=== PATIENT | male | born 1930 | race African-American/Black ===

== ENCOUNTER → 2016-06-16 | Outpatient (CLI) | payer MEDICARE, OTHER ==
[2016-06-16 11:29] LABS: ABSOLUTE BASOPHILS # (AUTO) 0.1 10^3/uL (0.0-0.2); ABSOLUTE EOSINOPHILS # (AUTO) 0.1 10^3/uL (0.0-0.6); ABSOLUTE LYMPHOCYTES (AUTO) 1.3 10^3/uL (0.5-4.7); ABSOLUTE MONOCYTES (AUTO) 0.4 10^3/uL (0.1-1.4); ABSOLUTE NEUT (AUTO) 2.4 10^3/uL (1.7-8.2); BASOPHILS % (AUTO) 1.2 % (0-2); EOSINOPHILS % (AUTO) 1.8 % (0-6); HEMATOCRIT 41.2 % (37.9-51.0); HEMOGLOBIN 13.1 g/dL (13.5-17.0); HGB HCT DIFFERENCE -1.9; LYMPHOCYTES % (AUTO) 30.3 % (13-45); MEAN CORPUSCULAR HEMOGLOBIN 27.8 pg (27.0-33.4); MEAN CORPUSCULAR HGB CONC 31.9 g/dL (32.0-36.0); MEAN CORPUSCULAR VOLUME 87 fl (80-97); MONOCYTES % (AUTO) 10.4 % (3-13); RED BLOOD COUNT 4.72 10^6/uL (4.35-5.55); RED CELL DISTRIBUTION WIDTH 15.7 % (11.5-14.0); SEGMENTED NEUTROPHILS % (AUTO) 56.3 % (42-78); WHITE BLOOD COUNT 4.2 10^3/uL (4.0-10.5)
[2016-06-16 11:38] LABS: ALANINE AMINOTRANSFERASE 38 U/L (21-72); ALBUMIN 4.3 g/dL (3.5-5.0); ALKALINE PHOSPHATASE 141 U/L (38-126); ANION GAP 14 (5-19); ASPARTATE AMINO TRANSFERASE 35 U/L (17-59); BLOOD UREA NITROGEN 18 mg/dL (7-20); CALCIUM 9.4 mg/dL (8.4-10.2); CARBON DIOXIDE 29 mmol/L (22-30); CHLORIDE 102 mmol/L (98-107); CHOLESTEROL 114.46 mg/dL (0-200); CREATININE RESULT 1.19 mg/dL (0.52-1.25); Direct HDL 30 mg/dL (>40); GLUCOSE 107 mg/dL (75-110); POTASSIUM 4.3 mmol/L (3.6-5.0); SODIUM 145.1 mmol/L (137-145); TOTAL PROTEIN 8.5 g/dL (6.3-8.2); TRIGLYCERIDES 59 mg/dL (<150)
[2016-06-16 11:50] LABS: DIRECT LDL 55 mg/dL (<100)
== END ==
LOC: OD 09:59
PROVIDERS: ATTEND Internal Medicine Geriatric Medicine
DX: E78.5 Hyperlipidemia, unspecified (principal); I10 Essential (primary) hypertension; E03.9 Hypothyroidism, unspecified
CPT/HCPCS: 36415; 80053; 80061; 84436; 84443; 85025

== ENCOUNTER 2016-09-04 19:23 | Emergency (ER) | payer MEDICARE, OTHER ==
[2016-09-04] MEDS ORDERED: OXYCODONE-ACETAMINOPHEN 5-325 MG TABLET PO ONE (23:39)
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
[2016-09-05 02:24] VITALS: BP 116/61
== END 2016-09-05 02:22 | disposition home or self-care (01) ==
LOC: ER 19:23
DX: R07.81 Pleurodynia (principal); V49.9XXA Car occupant (driver) (passenger) injured in unspecified traffic accident, initial encounter; I10 Essential (primary) hypertension; I48.91 Unspecified atrial fibrillation; Z79.01 Long term (current) use of anticoagulants
CPT/HCPCS: 99283; 71101; A9270

== ENCOUNTER 2016-09-09 18:27 | Emergency (ER) | payer MEDICARE, OTHER ==
--- NOTE | 2016-09-09 19:00 | ER Document Report ---
ED General - General Chief Complaint: Leg Pain Stated Complaint: LEG PAIN Time seen by provider: 18:45 Mode of Arrival: Medic Information source: Patient TRAVEL OUTSIDE OF THE [place] IN LAST 30 DAYS: No - HPI Notes: Patient is a 86-year-old male presents emergency department with report that he was sitting outside in a chair and stepped forward caught his leg on a part of the chair and then fell over on his left hip. He's been unable to get up on his own since that time. EMS came to pick patient up. Patient lives at home alone with his . He normally ambulates with a walker due to a history of a previous CVA with mild left-sided weakness. He denies any change in the mild chronic left-sided weakness or minimal numbness noted to the left lower extremity. Patient denies any head injury, neck pain, back pain, chest pain. - Related Data Allergies/Adverse Reactions: No Known Allergies Allergy (Verified 11/02/15 10:56) Past Medical History - General Information source: Patient - Social History Smoking Status: Never Smoker Frequency of alcohol use: None Drug Abuse: None Lives with: Spouse/Significant other Family History: None - Past Medical History Cardiac Medical History: Reports: Hx Atrial Fibrillation, Hx Hypercholesterolemia, Hx Hypertension - amlodipine benazepril Denies: Hx Congestive Heart Failure, Hx Heart Attack Pulmonary Medical History: Denies: Hx Asthma, Hx Tuberculosis Neurological Medical History: Denies: Hx Cerebrovascular Accident, Hx Seizures Renal/ Medical History: Reports: Hx Benign Prostatic Hyperplasia. Denies: Hx Peritoneal Dialysis GI Medical History: Denies: Hx Hepatitis, Hx Hiatal Hernia, Hx Ulcer Musculoskeltal Medical History: Reports Hx Arthritis, Reports Hx Muscle Weakness Psychiatric Medical History: Denies: Hx Depression Infectious Medical History: Denies: Hx Hepatitis Surgical Hx: Negative Past Surgical History: Denies: Hx Open Heart Surgery, Hx Pacemaker - Immunizations Immunizations up to date: Yes Hx Diphtheria, Pertussis, Tetanus Vaccination: Yes Hx Pneumococcal Vaccination: 02/15/13 Review of Systems - Review of Systems Notes: REVIEW OF SYSTEMS: CONSTITUTIONAL : Denies fever, chills, or sweats. Denies recent illness. EENT: Denies eye, ear, throat, or mouth pain or symptoms. Denies nasal or sinus congestion or discharge. Denies throat, tongue, or mouth swelling or difficulty swallowing. CARDIOVASCULAR: Denies chest pain. Denies palpitations or racing or irregular heart beat. Reports chronic unchanged bilateral lower extremity edema. RESPIRATORY: Denies cough, cold, or chest congestion. Denies shortness of breath, difficulty breathing, or wheezing. GASTROINTESTINAL: Denies abdominal pain or distention. Denies nausea, vomiting , or diarrhea. Denies blood in vomitus, stools, or per rectum. Denies black, tarry stools. Denies constipation. GENITOURINARY: Denies difficulty urinating, painful urination, burning, frequency, blood in urine, or discharge. MUSCULOSKELETAL: Denies back or neck pain or stiffness. Denies left knee ankle or foot pain. SKIN: Denies rash, lesions or sores. HEMATOLOGIC : Denies easy bruising or bleeding. LYMPHATIC: Denies swollen, enlarged glands. NEUROLOGICAL: Denies confusion or altered mental status. Denies passing out or loss of consciousness. Denies dizziness or lightheadedness. Denies headache. Denies problems with speech. Denies seizures. Reports chronic mild left sided weakness and numbness to the left leg related to an old CVA. PSYCHIATRIC: Denies anxiety or stress. Denies depression, suicidal ideation, or homicidal ideation. ALL OTHER SYSTEMS REVIEWED AND NEGATIVE. Dictation was performed using [email or web address] voice recognition software Physical Exam - Vital signs Vitals: Temp Pulse Resp BP Pulse Ox 97.5 F 80 16 131/83 H 94 09/09/16 18:39 09/09/16 18:39 09/09/16 18:39 09/09/16 18:39 09/09/16 18:39 - Notes Notes: PHYSICAL EXAMINATION: GENERAL: Well-appearing, well-nourished and in no acute distress. HEAD: Atraumatic, normocephalic. EYES: Pupils equal round and reactive to light, extraocular movements intact, sclera anicteric, conjunctiva are normal. ENT: Nares patent, oropharynx clear without exudates. Moist mucous membranes. NECK: Normal range of motion, supple without lymphadenopathy LUNGS: Breath sounds clear to auscultation bilaterally and equal. No wheezes rales or rhonchi. HEART: Regular rate and rhythm 1/6 systolic ejection murmur over the apex. ABDOMEN: Soft, nontender, nondistended abdomen. No guarding, no rebound. No masses appreciated. Musculoskeletal: Patient has chronic 3+ bilateral lower extremity edema which she states is unchanged. Patient has pain over the left hip, but has no pain over the left knee foot and ankle. There is no discomfort to examination of the neck or back. NEUROLOGICAL: Cranial nerves grossly intact. Normal speech. Patient reports very minimal left lower extremity numbness and weakness which he states is chronic and unchanged related to an old CVA. PSYCH: Normal mood, normal affect. SKIN: Warm, Dry, normal turgor, no rashes or lesions noted. Course - Re-evaluation Re-evalutation: 09/09/16 22:27 Patient given Zofran 4 mg IV and given morphine IV for hip fracture pain. Discussion was undertaken with the patient and family and there were no agreement with transfer of the patient to a another facility, as no orthopedics was available general practitioner this facility at this time and for the next 2 days. Call was made to [facility], but no bed was available. Call was made to [facility], but no bed was available. Call was made to [facility] and Dr. Colón except the patient in transfer emergency department to emergency department. No suggestion for other acute injury. No evidence for neurovascular compromise , as patient had adequate distal pulses. No clinical suggestion for any acute worsening of the patient's CVA with left hemiparesis. 09/09/16 22:30 - Vital Signs Vital signs: Temp Pulse Resp BP Pulse Ox 97.5 F 80 16 131/83 H 94 09/09/16 18:39 09/09/16 18:39 09/09/16 18:39 09/09/16 18:39 09/09/16 18:39 - Laboratory Result Diagrams: 09/09/16 19:14 09/09/16 19:14 Laboratory results interpreted by me: 09/09/16 09/09/16 09/09/16 19:14 19:14 19:14 RDW 16.4 H PT 17.1 H Sodium 135.0 L Potassium 3.4 L Chloride 93 L Glucose 119 H Total Bilirubin 1.4 H Direct Bilirubin 0.6 H Alkaline Phosphatase 136 H Total Protein 9.0 H Critical Care Note - Critical Care Note Total time excluding time spent on procedures (mins): 33 Discharge - Discharge Clinical Impression: Accidental fall Qualifiers: Encounter type: initial encounter Qualified Code(s): W19.XXXA - Unspecified fall, initial encounter Closed fracture of left hip Qualifiers: Encounter type: initial encounter Qualified Code(s): S72.002A - Fracture of unspecified part of neck of left femur, initial encounter for closed fracture Condition: Stable Disposition: [facility] Admitting Provider: Orthopedics
[2016-09-09 19:23] LABS: ABSOLUTE EOSINOPHILS # (AUTO) 0.1 10^3/uL (0.0-0.6); ABSOLUTE MONOCYTES (AUTO) 0.3 10^3/uL (0.1-1.4); BASOPHILS % (AUTO) 0.8 % (0-2); EOSINOPHILS % (AUTO) 1.2 % (0-6); HEMOGLOBIN 13.6 g/dL (13.5-17.0); HGB HCT DIFFERENCE 0.8; LYMPHOCYTES % (AUTO) 22.9 % (13-45); MEAN CORPUSCULAR HEMOGLOBIN 29.4 pg (27.0-33.4); MEAN CORPUSCULAR HGB CONC 33.8 g/dL (32.0-36.0); MEAN CORPUSCULAR VOLUME 87 fl (80-97); MONOCYTES % (AUTO) 7.7 % (3-13); RED BLOOD COUNT 4.61 10^6/uL (4.35-5.55); RED CELL DISTRIBUTION WIDTH 16.4 % (11.5-14.0); SEGMENTED NEUTROPHILS % (AUTO) 67.4 % (42-78); WHITE BLOOD COUNT 4.5 10^3/uL (4.0-10.5)
[2016-09-09 19:31] LABS: PROTHROMBIN TIME 17.1 SEC (11.4-15.4)
[2016-09-09 19:41] LABS: ALANINE AMINOTRANSFERASE 32 U/L (21-72); ALBUMIN 4.3 g/dL (3.5-5.0); ALKALINE PHOSPHATASE 136 U/L (38-126); ANION GAP 15 (5-19); ASPARTATE AMINO TRANSFERASE 42 U/L (17-59); BILIRUBIN,DIRECT 0.6 mg/dL (0.0-0.4); BILIRUBIN,TOTAL 1.4 mg/dL (0.2-1.3); BLOOD UREA NITROGEN 12 mg/dL (7-20); CALCIUM 9.2 mg/dL (8.4-10.2); CARBON DIOXIDE 27 mmol/L (22-30); CHLORIDE 93 mmol/L (98-107); CREATININE RESULT 0.97 mg/dL (0.52-1.25); GLUCOSE 119 mg/dL (75-110); POTASSIUM 3.4 mmol/L (3.6-5.0)
[2016-09-09] MEDS ORDERED: ONDANSETRON HCL INJ/PF 4 MG/2 ML SDV IV ONE (21:28)
[2016-09-09] MEDS ORDERED: MORPHINE SULFATE 10 MG/ML INJ IV ONE ×2 (21:29→22:49)
[2016-09-10] MEDS ORDERED: MORPHINE SULFATE 10 MG/ML INJ ONE (04:24)
[2016-09-10 04:40] VITALS: BP 106/61
== END 2016-09-10 04:50 | disposition short-term general hospital (02) ==
LOC: ER 18:27
DX: S72.002A Fracture of unspecified part of neck of left femur, initial encounter for closed fracture (principal); W07.XXXA Fall from chair, initial encounter; I69.354 Hemiplegia and hemiparesis following cerebral infarction affecting left non-dominant side; I69.398 Other sequelae of cerebral infarction; R20.0 Anesthesia of skin; R60.0 Localized edema; M25.562 Pain in left knee; M25.572 Pain in left ankle and joints of left foot; I10 Essential (primary) hypertension
CPT/HCPCS: 99291; 96374; 96375; 36415; 85025; 85610; 80053; 71010; 73502; J2270; J2405

== ENCOUNTER 2016-11-07 12:08 | Inpatient (IN) | payer MEDICARE, OTHER ==
--- NOTE | 2016-11-07 12:35 | ER Document Report ---
ED General - General Mode of Arrival: Medic Information source: Patient TRAVEL OUTSIDE OF THE [place] IN LAST 30 DAYS: No - HPI Patient complains to provider of: Altered Mental Status Onset: Last week Associated symptoms: Other - see notes above <MARI NANCE - Last Filed: 11/07/16 20:11> <CONNOR VELOZ - Last Filed: 11/07/16 20:12> - General Chief Complaint: Altered Mental Status Stated Complaint: ALTERED MENTAL STATUS Time Seen by Provider: 11/07/16 12:19 Notes: 86-year-old male with history of hypertension, CVA, atrial fibrillation, and dementia presents to the ED via EMS in an altered mental status that started this morning. Patient had a recent left partial hip replacement and was undergoing physical therapy at [facility]. Patient has been home for the past month and has been improving for the past 3 weeks. Over the course of this past week the patient developed diarrhea, loss of appetite, has been getting weaker, and has been 'mentally fuzzy'. He was seen by his primary care provider, Dr. Roth, yesterday where he was able to stand but was unable to walk with assistance. Patient explained that this is not normal behavior since the patient is normally able to walk with assistance. Family reports that they were having difficulty waking the patient up this morning. Patient is currently on Eliquis. (MARI NANCE) - Related Data Allergies/Adverse Reactions: No Known Allergies Allergy (Verified 11/02/15 10:56) Home Medications: Current Home Medications Apixaban [Eliquis 2.5 mg Tablet] 2.5 mg PO Q12 11/07/16 [History] Ascorbic Acid [Vitamin C] 500 mg PO BID 11/07/16 [History] Cholecalciferol (Vitamin D3) [Vitamin D3] 5,000 unit PO QHS 11/07/16 [History] Ferrous Sulfate [Feosol 325 mg Tablet] 325 mg PO BID 11/07/16 [History] Levothyroxine Sodium [Synthroid 0.05 mg Tablet] 0.05 mg PO QPM 11/07/16 [History ] Magnesium Oxide [Mag-Ox 400 mg Tablet] 400 mg PO DAILY 11/07/16 [History] Metoprolol Succinate [Toprol Xl 25 mg Tab.sr] 25 mg PO Q12 11/07/16 [History] Tamsulosin HCl [Flomax 0.4 mg Cap.sr] 0.4 mg PO PCSUPPER 11/07/16 [History] Past Medical History - General Information source: Patient - Social History Smoking Status: Former Smoker Chew tobacco use (# tins/day): No Frequency of alcohol use: former Drug Abuse: None Family History: None - Past Medical History Cardiac Medical History: Reports: Hx Atrial Fibrillation, Hx Hypercholesterolemia, Hx Hypertension - amlodipine benazepril Pulmonary Medical History: Renal/ Medical History: Reports: Hx Benign Prostatic Hyperplasia Musculoskeltal Medical History: Reports Hx Arthritis, Reports Hx Muscle Weakness Psychiatric Medical History: Denies: Hx Depression Infectious Medical History: Denies: Hx Hepatitis Past Surgical History: Reports: Hx Orthopedic Surgery - Partial left hip replacement - Immunizations Immunizations up to date: Yes Hx Diphtheria, Pertussis, Tetanus Vaccination: Yes Hx Pneumococcal Vaccination: 02/15/13 <MARI NANCE - Last Filed: 11/07/16 20:11> Review of Systems - Review of Systems Constitutional: No symptoms reported EENT: No symptoms reported Cardiovascular: No symptoms reported Respiratory: No symptoms reported Gastrointestinal: See HPI, Diarrhea, Poor appetite Genitourinary: No symptoms reported Male Genitourinary: No symptoms reported Musculoskeletal: No symptoms reported Skin: No symptoms reported Hematologic/Lymphatic: No symptoms reported Neurological/Psychological: See HPI, Weakness -: Yes All other systems reviewed and negative <MARI NANCE - Last Filed: 11/07/16 20:11> Physical Exam <MARI NANCE - Last Filed: 11/07/16 20:11> <CONNOR VELOZ - Last Filed: 11/07/16 20:12> - Vital signs Vitals: Temp 95.1 F L 11/07/16 12:52 - Notes Notes: GENERAL: Patient moans, but does not speak. Winces to painful stimuli. Patient follows directions to squeezing, but not letting go. HEAD: Normocephalic, atraumatic. EYES: Patient's eyes are closed and resists when trying to open them. ENT: Oral mucosa dry, tongue midline. NECK: Full range of motion. Supple. Trachea midline. LUNGS: Clear to auscultation bilaterally, no wheezes, rales, or rhonchi. No respiratory distress. HEART: Irregularly irregular, but not tachycardic. 1/6 systolic murmur. No gallops or rubs. ABDOMEN: Soft, non-tender. Non-distended. Bowel sounds present in all 4 quadrants. EXTREMITIES: Radial and dorsalis pedis pulses 2/4 bilaterally. No cyanosis. 1+ pitting edema bilaterally. NEUROLOGICAL: Biceps and patellar DTRs 2+ bilaterally. SKIN: Warm and dry. No rashes or lesions noted. (MARI NANCE) Course - Laboratory Result Diagrams: 11/07/16 13:15 11/07/16 13:15 - Consults Dr. Ramsey Time consulted: 16:33 <AMRI NANCE - Last Filed: 11/07/16 20:11> - Laboratory Result Diagrams: 11/07/16 13:15 11/07/16 13:15 <CONNOR VELOZ - Last Filed: 11/07/16 20:12> - Re-evaluation Re-evalutation: 11/07/16 16:33 Less than 100 mLs of urine obtained through Cesar catheter since inserted at 13: 40. (MARI NANCE) 11/07/16 16:37 CBC shows leukopenia with a white blood cell count of 13.8, it is actually pancytopenia with low hemoglobin at 13.1 and platelets low at 142, INR prolonged at 1.57 without taking any Coumadin, blood gas unremarkable, CMP shows somewhat elevated alkaline phosphatase otherwise unremarkable, lactic acid normal, urinalysis unremarkable, Hemoccult is positive. Chest x-ray shows no acute process, head CT shows no acute process. Patient was noted to be hypothermic on arrival, there hugger was placed, patient's temperature has not improved, I am concerned that the patient may be septic possibly bacteremic, patient is treated with Primaxin, given fluids, Cesar catheter output is minimal. Discussed with Dr. Ramsey who is covering for Dr. Roth who agrees to admit the patient to his service in the [facility] for sepsis. 11/07/16 16:41 After some fluids and the bear hugger the patient's mental status has improved somewhat, he is now able to squeeze my hand on both sides and move his feet on both sides, otherwise does not follow commands. He does open his eyes when I showed his name. There is no facial droop. No evidence of a stroke. (CONNOR VELOZ) - Vital Signs Vital signs: Temp Pulse Resp BP Pulse Ox 97.7 F 18 115/77 95 11/07/16 19:01 11/07/16 19:01 11/07/16 19:01 11/07/16 18:01 - Laboratory Laboratory results interpreted by me: 11/07/16 11/07/16 11/07/16 13:15 13:15 13:15 WBC 3.8 L Hgb 13.1 L MCHC 31.8 L RDW 17.5 H Plt Count 142 L PT 19.7 H Chloride 108 H Direct Bilirubin 0.8 H Alkaline Phosphatase 188 H Total Protein 8.4 H Urine Protein Urine Ascorbic Acid 11/07/16 13:52 WBC Hgb MCHC RDW Plt Count PT Chloride Direct Bilirubin Alkaline Phosphatase Total Protein Urine Protein 30 H Urine Ascorbic Acid 40 H - EKG Interpretation by Me Additional EKG results interpreted by me: 11/07/16 16:39 EKG shows atrial fibrillation at a rate of 70, left anterior hemiblock, normal R -wave progression, no ST segment elevations or depressions, there are T-wave inversions noted in aVL per my interpretation. (CONNOR VELOZ) - Consults Dr. Ramsey Reason for consultation: 11/07/16 16:33 Patient was discussed with Dr. Ramsey and agrees the patient is likely septic and agrees to admit the patient to IMCU. (MARI NANCE) Critical Care Note - Critical Care Note Total time excluding time spent on procedures (mins): 45 <CONNOR VELOZ - Last Filed: 11/07/16 20:12> Discharge <MARI NANCE - Last Filed: 11/07/16 20:11> - Discharge Admitting Provider: Gonzalez Nicole covering Unit Admitted: IMCU <CONNOR VELOZ - Last Filed: 11/07/16 20:12> - Discharge Clinical Impression: Sepsis Qualifiers: Sepsis type: sepsis due to unspecified organism Qualified Code(s): A41.9 - Sepsis, unspecified organism Altered mental status Qualifiers: Altered mental status type: somnolence Qualified Code(s): R40.0 - Somnolence Hypothermia Qualifiers: Encounter type: initial encounter Qualified Code(s): T68.XXXA - Hypothermia, initial encounter Condition: Serious Disposition: ADMITTED INPATIENT Scribe Attestation: 11/07/16 20:12 I personally performed the services described in the documentation, reviewed and edited the documentation which was dictated to the scribe in my presence, and it accurately records my words and actions. (CONNOR VELOZ) Scribe Documentation - Scribe Written by Scribe:: Malina Prince 11/07/2016 1414 acting as scribe for :: Bridgette <MARI NANCE - Last Filed: 11/07/16 20:11>
[2016-11-07] MEDS ORDERED: LIDOCAINE 2% URO-JET 5 ML KIT MM ONE (13:06)
[2016-11-07 13:36] LABS: ABSOLUTE MONOCYTES (AUTO) 0.4 10^3/uL (0.1-1.4); ABSOLUTE NEUT (AUTO) 2.3 10^3/uL (1.7-8.2); BASOPHILS % (AUTO) 0.6 % (0-2); EOSINOPHILS % (AUTO) 0.2 % (0-6); HEMATOCRIT 41.2 % (37.9-51.0); HEMOGLOBIN 13.1 g/dL (13.5-17.0); HGB HCT DIFFERENCE -1.9; LYMPHOCYTES % (AUTO) 27.1 % (13-45); MEAN CORPUSCULAR HEMOGLOBIN 27.9 pg (27.0-33.4); MEAN CORPUSCULAR HGB CONC 31.8 g/dL (32.0-36.0); MEAN CORPUSCULAR VOLUME 88 fl (80-97); MONOCYTES % (AUTO) 10.4 % (3-13); RED CELL DISTRIBUTION WIDTH 17.5 % (11.5-14.0); SEGMENTED NEUTROPHILS % (AUTO) 61.7 % (42-78); WHITE BLOOD COUNT 3.8 10^3/uL (4.0-10.5)
[2016-11-07 13:38] LABS: VENOUS BLOOD BASE EXCESS -0.5 mmol/L; VENOUS BLOOD HCO3 24.9 mmol/L (20-32); VENOUS BLOOD PCO2 43.7 mmHg (35-63); VENOUS BLOOD PH 7.37 (7.30-7.42)
[2016-11-07 13:46] LABS: PROTHROMBIN TIME 19.7 SEC (11.4-15.4)
[2016-11-07 14:11] LABS: APPEARANCE,URINE CLEAR; BILIRUBIN,URINE NEGATIVE (NEGATIVE); GLUCOSE, URINE NEGATIVE (NEGATIVE); KETONES,URINE NEGATIVE (NEGATIVE); PROTEIN,URINE 30 mg/dL (NEGATIVE); URINE SPECIFIC GRAVITY 1.021; UROBILINOGEN,URINE NEGATIVE mg/dL (<2.0)
[2016-11-07 14:12] LABS: LEUKOCYTE ESTERASE,URINE NEGATIVE (NEGATIVE); NITRITE,URINE NEGATIVE (NEGATIVE)
[2016-11-07 14:16] LABS: RBC,URINE 0-1 /HPF; WBC,URINE 0-1 /HPF
[2016-11-07 14:27] LABS: ALANINE AMINOTRANSFERASE 39 U/L (21-72); ALBUMIN 3.8 g/dL (3.5-5.0); ALKALINE PHOSPHATASE 188 U/L (38-126); ANION GAP 12 (5-19); ASPARTATE AMINO TRANSFERASE 53 U/L (17-59); BILIRUBIN,DIRECT 0.8 mg/dL (0.0-0.4); BILIRUBIN,TOTAL 1.2 mg/dL (0.2-1.3); BLOOD UREA NITROGEN 12 mg/dL (7-20); CALCIUM 9.3 mg/dL (8.4-10.2); CARBON DIOXIDE 24 mmol/L (22-30); CHLORIDE 108 mmol/L (98-107); CREATININE RESULT 0.91 mg/dL (0.52-1.25); GLUCOSE 80 mg/dL (75-110); POTASSIUM 4.2 mmol/L (3.6-5.0); SODIUM 143.6 mmol/L (137-145); TOTAL PROTEIN 8.4 g/dL (6.3-8.2)
--- NOTE | 2016-11-07 16:11 | RADIOLOGY REPORT (SQ) ---
EXAM DESCRIPTION: CT HEAD WITHOUT COMPLETED DATE/TIME: 11/07/2016 3:46 pm REASON FOR STUDY: altered mental status COMPARISON: December 2015 TECHNIQUE: Axial images acquired through the brain without intravenous contrast. Images reviewed wi th bone, brain and subdural windows. Images stored on PACS. All CT scanners at this facility use dose modulation, iterative reconstruction, and/or weight based d osing when appropriate to reduce radiation dose to as low as reasonably achievable (ALARA). [facility]: Dose Right [facility]: CareDose [facility]: Dose Right [facility]: Teradose 4D [facility]: [facility] [place] RADIATION DOSE: Up-to-date CT equipment and radiation dose reduction techniques were employed. CTDIv ol: 67.0 mGy. DLP: 1316 mGy-cm.mGy. LIMITATIONS: None. FINDINGS: VENTRICLES: Prominent. CEREBRUM: No masses. No hemorrhage. No midline shift. Areas of low density in the white matter mos t likely due to chronic micro-vascular ischemic change. No evidence for acute infarction. CEREBELLUM: No masses. No hemorrhage. No alteration of density. No evidence for acute infarction. EXTRAAXIAL SPACES: Age-related involutional change. No fluid collections. No masses. ORBITS AND GLOBE: No intra- or extraconal masses. Normal contour of globe without masses. CALVARIUM: No fracture. PARANASAL SINUSES: No fluid or mucosal thickening. SOFT TISSUES: No mass or hematoma. OTHER: No other significant finding. IMPRESSION: CHRONIC CHANGES OF ATROPHY AND MICROVASCULAR ISCHEMIA. NO ACUTE PROCESS. TECHNICAL DOCUMENTATION: JOB ID: [id number] Quality ID # [id number]: Final reports with documentation of one or more dose reduction techniques (e.g., Au tomated exposure control, adjustment of the mA and/or kV according to patient size, use of iterative reconstruction technique) 2010 [employer]- All Rights Reserved
--- NOTE | 2016-11-07 16:12 | RADIOLOGY REPORT (SQ) ---
EXAM DESCRIPTION: CHEST SINGLE VIEW COMPLETED DATE/TIME: 11/07/2016 3:51 pm REASON FOR STUDY: altered mental status, hypothermic COMPARISON: 09/09/2016 EXAM PARAMETERS: NUMBER OF VIEWS: One view. TECHNIQUE: Single frontal radiographic view of the chest acquired. RADIATION DOSE: NA LIMITATIONS: None. FINDINGS: LUNGS AND PLEURA: No opacities, masses or pneumothorax. No pleural effusion. MEDIASTINUM AND HILAR STRUCTURES: No masses. Contour normal. HEART AND VASCULAR STRUCTURES: Cardiac silhouette remains enlarged and is unchanged in configuration. BONES: No acute findings. HARDWARE: None in the chest. OTHER: No other significant finding. IMPRESSION: No significant interval change. No acute findings. Other findings as noted above TECHNICAL DOCUMENTATION: JOB ID: [id number]
[2016-11-07] MEDS ORDERED: NORMAL SALINE 1000 ML 1,000 ML IV ONE ×2 (16:31→16:39)
[2016-11-07] MEDS ORDERED: IMIPENEM/CILASTATIN SODIUM INJ 500 MG VIAL IV ONE (16:31)
[2016-11-07] MEDS ORDERED: VANCOMYCIN HCL 1,500 MG in DEXTROSE 5%-WATER 250 ML IV ONE (22:00)
[2016-11-07] MEDS: NORMAL SALINE 1000 ML 1,000 ML IV PRN (22:08)
[2016-11-07] MEDS: CEFTRIAXONE 1 GM/D5W RTU 1 GM/50 ML RTUPB IV SCH (22:09)
[2016-11-08 04:56] LABS: HEMATOCRIT 36.7 % (37.9-51.0); HEMOGLOBIN 11.9 g/dL (13.5-17.0); MEAN CORPUSCULAR HEMOGLOBIN 28.5 pg (27.0-33.4); MEAN CORPUSCULAR HGB CONC 32.3 g/dL (32.0-36.0); MEAN CORPUSCULAR VOLUME 88 fl (80-97); RED BLOOD COUNT 4.17 10^6/uL (4.35-5.55); RED CELL DISTRIBUTION WIDTH 17.2 % (11.5-14.0); WHITE BLOOD COUNT 4.1 10^3/uL (4.0-10.5)
[2016-11-08 05:03] LABS: ANION GAP 13 (5-19); BLOOD UREA NITROGEN 11 mg/dL (7-20); CALCIUM 8.5 mg/dL (8.4-10.2); CARBON DIOXIDE 20 mmol/L (22-30); CHLORIDE 111 mmol/L (98-107); CREATININE RESULT 0.86 mg/dL (0.52-1.25); GLUCOSE 64 mg/dL (75-110); POTASSIUM 3.8 mmol/L (3.6-5.0); SODIUM 144.1 mmol/L (137-145)
[2016-11-08] MEDS: LEVOTHYROXINE SODIUM 0.05 MG TABLET PO SCH (05:11)
[2016-11-08 06:01] LABS: BASOPHILS % (MANUAL) 0 % (0-2); EOSINOPHILS % (MANUAL) 1 % (0-6); LYMPHOCYTES % (MANUAL) 23 % (13-45); TOTAL CELLS COUNTED 100
[2016-11-08 06:03] LABS: ACANTHOCYTES SLIGHT; ANISOCYTOSIS 1+; BURR CELLS 1+; OVALOCYTES 1+; POIKILOCYTOSIS 1+
[2016-11-08] MEDS: FERROUS SULFATE 325 MG TABLET PO SCH ×2 (08:50→17:17)
[2016-11-08] MEDS: CEFTRIAXONE 1 GM/D5W RTU 1 GM/50 ML RTUPB IV SCH ×2 (09:03→21:22)
[2016-11-08] MEDS: METOPROLOL SUCCINATE 25 MG TAB.SR.24H PO SCH ×2 (09:07→21:23)
[2016-11-08] MEDS: MAGNESIUM OXIDE 400 MG TABLET PO SCH (09:07)
[2016-11-08] MEDS: ASCORBIC ACID 500 MG TABLET PO SCH ×2 (09:07→17:17)
[2016-11-08] MEDS: APIXABAN 2.5 MG TABLET PO SCH ×2 (09:07→17:17)
[2016-11-08] MEDS ORDERED: VANCOMYCIN HCL 0 MG in DEXTROSE 5%-WATER 250 ML IV NR (10:15)
[2016-11-08 11:19] LABS: THYROID STIMULATING HORMONE 1.5 uIU/mL (0.47-4.68)
--- NOTE | 2016-11-08 11:47 | RADIOLOGY REPORT (SQ) ---
EXAM DESCRIPTION: MRI HEAD WITHOUT COMPLETED DATE/TIME: 11/08/2016 11:36 am REASON FOR STUDY: unresposivness COMPARISON: 11/03/2015 TECHNIQUE: Multiplanar imaging includes non-contrasted T1, T2, FLAIR, and diffusion with ADC map seq uences. Heme sensitive imaging Images stored on PACS. LIMITATIONS: None. FINDINGS: ANATOMY: No anomalies. Normal vascular flow voids. Pituitary fossa normal. CSF SPACES: Atrophy induced prominence of ventricles and CSF spaces. CEREBRUM: High signal intensity lesions scattered throughout the white matter on FLAIR imaging with d istribution suggesting micro-vascular ischemic changes. No evidence of hemorrhage, mass, or extraaxi al fluid collection. POSTERIOR FOSSA: No signal alteration. No hemorrhage. No edema, masses or mass effect. Internal freddie tory canals, cerebello-pontine angles, mastoids normal. DIFFUSION IMAGING: Negative for acute or sub-acute infarction. ORBITS: No masses. Globes normal. PARANASAL SINUSES: No fluid levels. Mucosa normal. OTHER: No other significant finding. IMPRESSION: ATROPHY AND CHRONIC MICRO-VASCULAR ISCHEMIC CHANGES. OTHERWISE NORMAL MRI OF THE BRAIN W ITHOUT INTRAVENOUS GADOLINIUM CONTRAST. No acute infarct. No hemorrhage. TECHNICAL DOCUMENTATION: JOB ID: [id number] [employer]- All Rights Reserved
[2016-11-08] MEDS: VANCOMYCIN HCL 750 MG in DEXTROSE 5%-WATER 250 ML IV SCH ×2 (11:51→21:23)
--- NOTE | 2016-11-08 12:41 | PDOC H&P ---
History of Present Illness Admission Date/PCP: 11/07/16 23:18 SHYANNE ROSAS History of Present Illness: WALKER ROCHE is a 86 year old male, he was brought to the emergency room by family for evaluation of altered mental status. He recently fell and sustained fracture of the left hip , he underwent left hip arthroplasty and the he just recently finished physical therapy at the [place] [facility]. Family stated that in the last few days he had diarrhea, anorexia he was getting weaker, he was also recently seen by Dr. Rosas in the office on of this week when he was seen he was able to stand but he could walk only with assistance. In the emergency room he was evaluated he was found to be hypothermic there was no immediate source of infection. When I saw the patient and evaluated him ,the neck is stiff. Family stated that his neck is always stiff. He needed a spinal tap but is on anticoagulant Eliquis, unable to perform a lumbar puncture at this time, no history could be obtained from this patient, he will be empirically treated with IV antibiotic to cover for [employer] infection, unfortunately we are unable to do a lumbar puncture at this time because he takes anticoagulant Eliquis. No history could be obtained for this patient because he does not respond to verbal stimulus nor to noxious stimulus. The CAT scan of the head that was done in the emergency room was negative Past Medical History Cardiac Medical History: Reports: Atrial Fibrillation, Hyperlipidema, Hypertension - amlodipine benazepril Pulmonary Medical History: Neurological Medical History: Denies: Seizures Musculoskeltal Medical History: Reports: Arthritis Hematology: Past Surgical History Past Surgical History: Reports: Orthopedic Surgery - Partial left hip replacement Denies: Pacemaker Social History Smoking Status: Former Smoker Last Time Smoked: 1986 Frequency of Alcohol Use: None Hx Recreational Drug Use: No Drugs: None Hx Prescription Drug Abuse: No - Advance Directive Resuscitation Status: Full Code Family History Family History: None Parental Family History Reviewed: Yes Children Family History Reviewed: Yes Sibling(s) Family History Reviewed.: Yes Medication/Allergy Home Medications: Apixaban [Eliquis 2.5 mg Tablet] 2.5 mg PO Q12 11/07/16 Ascorbic Acid [Vitamin C] 500 mg PO BID 11/07/16 Cholecalciferol (Vitamin D3) [Vitamin D3] 5,000 unit PO QHS 11/07/16 Ferrous Sulfate [Feosol 325 mg Tablet] 325 mg PO BID 11/07/16 Levothyroxine Sodium [Synthroid 0.05 mg Tablet] 0.05 mg PO QPM 11/07/16 Magnesium Oxide [Mag-Ox 400 mg Tablet] 400 mg PO DAILY 11/07/16 Metoprolol Succinate [Toprol Xl 25 mg Tab.sr] 25 mg PO Q12 11/07/16 Tamsulosin HCl [Flomax 0.4 mg Cap.sr] 0.4 mg PO PCSUPPER 11/07/16 Allergies/Adverse Reactions: No Known Allergies Allergy (Verified 11/02/15 10:56) Review of Systems ROS unobtainable: Due to mental status Physical Exam Vital Signs: Temp Pulse Resp BP Pulse Ox 98.8 F 94 20 107/65 98 11/08/16 11:51 11/08/16 11:51 11/08/16 11:51 11/08/16 11:51 11/08/16 11:51 Intake & Output 11/07/16 11/08/16 11/09/16 06:59 06:59 06:59 Intake Total 701 Output Total 200 200 Balance 501 -200 Weight 76 kg General appearance: PRESENT: other - Patient is unresponsive Eye exam: PRESENT: other - small pupil Neck exam: PRESENT: other - The neck is stiff Respiratory exam: PRESENT: clear to auscultation job, unlabored Cardiovascular exam: PRESENT: +S1, +S2 GI/Abdominal exam: PRESENT: soft Neurological exam: PRESENT: other - Patient is unresponsive to verbal stimulus,, noxious stimulus Skin exam: PRESENT: intact Results Laboratory Results: 11/08/16 04:12 11/08/16 04:12 11/08/16 11/08/16 11/08/16 04:12 04:12 04:12 WBC 4.1 RBC 4.17 L Hgb 11.9 L Hct 36.7 L MCV 88 MCH 28.5 MCHC 32.3 RDW 17.2 H Plt Count 123 L Seg Neutrophils % Not Reportable Lymphocytes % Not Reportable Monocytes % Not Reportable Eosinophils % Not Reportable Basophils % Not Reportable Absolute Neutrophils Not Reportable Absolute Lymphocytes Not Reportable Absolute Monocytes Not Reportable Absolute Eosinophils Not Reportable Absolute Basophils Not Reportable Sodium 144.1 Potassium 3.8 Chloride 111 H Carbon Dioxide 20 L Anion Gap 13 BUN 11 Creatinine 0.86 Est GFR ( Amer) > 60 Est GFR (Non-Af Amer) > 60 Glucose 64 L Calcium 8.5 TSH 1.50 Free T4 1.76 Impressions: Chest X-Ray 11/07/16 12:35 IMPRESSION: No significant interval change. No acute findings. Other findings as noted above Head CT 11/07/16 12:36 IMPRESSION: CHRONIC CHANGES OF ATROPHY AND MICROVASCULAR ISCHEMIA. NO ACUTE PROCESS. Head MRI 11/08/16 00:00 IMPRESSION: ATROPHY AND CHRONIC MICRO-VASCULAR ISCHEMIC CHANGES. OTHERWISE NORMAL MRI OF THE BRAIN WITHOUT INTRAVENOUS GADOLINIUM CONTRAST. No acute infarct. No hemorrhage. Assessment & Plan - Diagnosis (1) Unresponsiveness Is this a current diagnosis for this admission?: YesPlan: There is no metabolic explanation for the unresponsiveness, patient will be need a lumbar puncture, the last time he had anticoagulant Eliquis was , he will empirically be treated with IV ceftriaxone and vancomycin to cover potential pathogens for [employer] infection, MRI of the head to be ordered, CT head was negative. Patient was also made a DNR status
--- NOTE | 2016-11-08 12:47 | PDOC PROGRESS REPORT ---
Subjective Progress Note for:: 11/08/16 Subjective:: Patient remained unresponsive, MRI head was negative, he will be scheduled for lumbar puncture tomorrow morning under fluoroscopy Physical Exam Vital Signs: Temp Pulse Resp BP Pulse Ox 98.8 F 94 20 107/65 98 11/08/16 11:51 11/08/16 12:00 11/08/16 12:00 11/08/16 12:00 11/08/16 12:00 Intake & Output 11/07/16 11/08/16 11/09/16 06:59 06:59 06:59 Intake Total 701 Output Total 200 200 Balance 501 -200 Weight 76 kg General appearance: PRESENT: other - Patient unresponsive Neck exam: PRESENT: other - Neck stiffness Respiratory exam: PRESENT: clear to auscultation job Cardiovascular exam: PRESENT: +S1, +S2 Neurological exam: PRESENT: other - Unresponsive Results Laboratory Results: 11/08/16 04:12 11/08/16 04:12 11/08/16 11/08/16 11/08/16 04:12 04:12 04:12 WBC 4.1 RBC 4.17 L Hgb 11.9 L Hct 36.7 L MCV 88 MCH 28.5 MCHC 32.3 RDW 17.2 H Plt Count 123 L Seg Neutrophils % Not Reportable Lymphocytes % Not Reportable Monocytes % Not Reportable Eosinophils % Not Reportable Basophils % Not Reportable Absolute Neutrophils Not Reportable Absolute Lymphocytes Not Reportable Absolute Monocytes Not Reportable Absolute Eosinophils Not Reportable Absolute Basophils Not Reportable Sodium 144.1 Potassium 3.8 Chloride 111 H Carbon Dioxide 20 L Anion Gap 13 BUN 11 Creatinine 0.86 Est GFR ( Amer) > 60 Est GFR (Non-Af Amer) > 60 Glucose 64 L Calcium 8.5 TSH 1.50 Free T4 1.76 Impressions: Chest X-Ray 11/07/16 12:35 IMPRESSION: No significant interval change. No acute findings. Other findings as noted above Head CT 11/07/16 12:36 IMPRESSION: CHRONIC CHANGES OF ATROPHY AND MICROVASCULAR ISCHEMIA. NO ACUTE PROCESS. Head MRI 11/08/16 00:00 IMPRESSION: ATROPHY AND CHRONIC MICRO-VASCULAR ISCHEMIC CHANGES. OTHERWISE NORMAL MRI OF THE BRAIN WITHOUT INTRAVENOUS GADOLINIUM CONTRAST. No acute infarct. No hemorrhage. Assessment & Plan - Diagnosis (1) Unresponsiveness Is this a current diagnosis for this admission?: YesPlan: MRI brain negative, scheduled for lumbar puncture under fluoroscopy tomorrow morning, we will also empirically start acyclovir to cover for HSV
[2016-11-08 13:51] LABS: PROTHROMBIN TIME 21.1 SEC (11.4-15.4)
[2016-11-08 13:52] LABS: PARTIAL THROMBOPLASTIN TIME 37.5 SEC (23.5-35.8)
[2016-11-08] MEDS: NORMAL SALINE 1000 ML 1,000 ML IV PRN (16:38)
[2016-11-08] MEDS: TAMSULOSIN HCL 0.4 MG CAP.SR.24H PO SCH (17:17)
--- NOTE | 2016-11-08 17:34 | EKG REPORT ---
SEVERITY:- ABNORMAL ECG - ATRIAL FIBRILLATION IVCD, CONSIDER ATYPICAL RBBB INFERIOR INFARCT, OLD : Confirmed by: Andrés Scott 08-Nov-2016 17:32:54
[2016-11-08] MEDS: ACYCLOVIR SODIUM IV SCH (18:29)
[2016-11-08] MEDS: NORMAL SALINE IV SCH (18:29)
[2016-11-08] MEDS: CHOLECALCIFEROL (D3) 1,000 UNIT TABLET PO SCH (21:23)
[2016-11-09] MEDS: ACYCLOVIR SODIUM IV SCH ×3 (01:34→18:00)
[2016-11-09] MEDS: NORMAL SALINE IV SCH ×3 (01:34→18:00)
[2016-11-09] MEDS: LEVOTHYROXINE SODIUM 0.05 MG TABLET PO SCH (05:18)
[2016-11-09] MEDS: FERROUS SULFATE 325 MG TABLET PO SCH ×2 (09:40→18:03)
[2016-11-09] MEDS: ASCORBIC ACID 500 MG TABLET PO SCH ×2 (09:40→18:03)
[2016-11-09] MEDS: MAGNESIUM OXIDE 400 MG TABLET PO SCH (09:40)
[2016-11-09] MEDS: APIXABAN 2.5 MG TABLET PO SCH ×2 (09:40→17:49)
[2016-11-09] MEDS: METOPROLOL SUCCINATE 25 MG TAB.SR.24H PO SCH ×2 (09:40→21:32)
[2016-11-09] MEDS: CEFTRIAXONE 1 GM/D5W RTU 1 GM/50 ML RTUPB IV SCH ×2 (09:43→21:33)
[2016-11-09] MEDS: VANCOMYCIN HCL 750 MG in DEXTROSE 5%-WATER 250 ML IV SCH ×2 (09:44→22:30)
[2016-11-09 10:36] LABS: CREATININE RESULT 0.81 mg/dL (0.52-1.25)
--- NOTE | 2016-11-09 10:42 | PDOC PROGRESS REPORT ---
Subjective Progress Note for:: 11/09/16 Subjective:: Patient was seen by the bedside, he regained full consciousness today suggesting that he may have a [employer] infection, meningitis versus viral encephalitis .He is presently empirically on antibiotic and antiviral to cover potential pathogens. I explained to the family that he will need lumbar puncture to diagnose the specific pathogen causing the [employer] infection because this will determine duration of treatment. Physical Exam Vital Signs: Temp Pulse Resp BP Pulse Ox 97.3 F 71 20 119/78 100 11/09/16 07:17 11/09/16 07:17 11/09/16 07:17 11/09/16 07:17 11/09/16 07:17 Intake & Output 11/08/16 11/09/16 11/10/16 06:59 06:59 06:59 Intake Total 701 1900 Output Total 200 675 Balance 501 1225 Weight 76 kg 81.7 kg General appearance: PRESENT: no acute distress Eye exam: PRESENT: PERRLA Neck exam: PRESENT: meningismus Respiratory exam: PRESENT: clear to auscultation job Cardiovascular exam: PRESENT: +S1, +S2 GI/Abdominal exam: PRESENT: soft Neurological exam: PRESENT: alert Results Laboratory Results: 11/08/16 04:12 11/08/16 04:12 TSH 1.50 Free T4 1.76 Impressions: Chest X-Ray 11/07/16 12:35 IMPRESSION: No significant interval change. No acute findings. Other findings as noted above Head CT 11/07/16 12:36 IMPRESSION: CHRONIC CHANGES OF ATROPHY AND MICROVASCULAR ISCHEMIA. NO ACUTE PROCESS. Head MRI 11/08/16 00:00 IMPRESSION: ATROPHY AND CHRONIC MICRO-VASCULAR ISCHEMIC CHANGES. OTHERWISE NORMAL MRI OF THE BRAIN WITHOUT INTRAVENOUS GADOLINIUM CONTRAST. No acute infarct. No hemorrhage. Assessment & Plan - Diagnosis (1) Unresponsiveness Is this a current diagnosis for this admission?: Yes (2) Encephalopathy Is this a current diagnosis for this admission?: Yes (3) Meningoencephalitis Is this a current diagnosis for this admission?: YesPlan: Pathogen is not known, patient will need lumbar puncture, but respond to empiric antibiotic and antiviral, will continue same treatment until specif pathogen is known
[2016-11-09] MEDS: NORMAL SALINE 1000 ML 1,000 ML IV PRN (15:20)
[2016-11-09] MEDS: TAMSULOSIN HCL 0.4 MG CAP.SR.24H PO SCH (18:03)
[2016-11-09] MEDS: CHOLECALCIFEROL (D3) 1,000 UNIT TABLET PO SCH (21:32)
[2016-11-10] MEDS: NORMAL SALINE IV SCH ×3 (02:04→17:40)
[2016-11-10] MEDS: ACYCLOVIR SODIUM IV SCH ×3 (02:04→17:40)
[2016-11-10 05:04] LABS: ABSOLUTE BASOPHILS # (AUTO) 0.1 10^3/uL (0.0-0.2); ABSOLUTE LYMPHOCYTES (AUTO) 1.3 10^3/uL (0.5-4.7); ABSOLUTE MONOCYTES (AUTO) 0.5 10^3/uL (0.1-1.4); ABSOLUTE NEUT (AUTO) 3.2 10^3/uL (1.7-8.2); BASOPHILS % (AUTO) 1.2 % (0-2); EOSINOPHILS % (AUTO) 0.9 % (0-6); HEMATOCRIT 41.5 % (37.9-51.0); HEMOGLOBIN 13.3 g/dL (13.5-17.0); HGB HCT DIFFERENCE -1.6; LYMPHOCYTES % (AUTO) 26.1 % (13-45); MEAN CORPUSCULAR HEMOGLOBIN 28.3 pg (27.0-33.4); MEAN CORPUSCULAR VOLUME 88 fl (80-97); MONOCYTES % (AUTO) 9.8 % (3-13); RED CELL DISTRIBUTION WIDTH 17.1 % (11.5-14.0); WHITE BLOOD COUNT 5.2 10^3/uL (4.0-10.5)
[2016-11-10 05:31] LABS: ANION GAP 14 (5-19); BLOOD UREA NITROGEN 9 mg/dL (7-20); CALCIUM 8.8 mg/dL (8.4-10.2); CARBON DIOXIDE 20 mmol/L (22-30); CHLORIDE 108 mmol/L (98-107); CREATININE RESULT 0.76 mg/dL (0.52-1.25); GLUCOSE 97 mg/dL (75-110); POTASSIUM 3.9 mmol/L (3.6-5.0); SODIUM 141.5 mmol/L (137-145)
[2016-11-10] MEDS: LEVOTHYROXINE SODIUM 0.05 MG TABLET PO SCH (06:32)
[2016-11-10] MEDS: ASCORBIC ACID 500 MG TABLET PO SCH ×2 (10:40→17:43)
[2016-11-10] MEDS: CEFTRIAXONE 1 GM/D5W RTU 1 GM/50 ML RTUPB IV SCH ×2 (10:40→21:22)
[2016-11-10] MEDS: VANCOMYCIN HCL 750 MG in DEXTROSE 5%-WATER 250 ML IV SCH ×2 (10:40→21:23)
[2016-11-10] MEDS: METOPROLOL SUCCINATE 25 MG TAB.SR.24H PO SCH ×2 (10:40→21:24)
[2016-11-10] MEDS: MAGNESIUM OXIDE 400 MG TABLET PO SCH (10:40)
[2016-11-10] MEDS: FERROUS SULFATE 325 MG TABLET PO SCH ×2 (10:42→17:43)
[2016-11-10] MEDS: APIXABAN 2.5 MG TABLET PO SCH ×2 (10:42→17:43)
--- NOTE | 2016-11-10 12:41 | PDOC PROGRESS REPORT ---
Subjective Progress Note for:: 11/10/16 Subjective:: Patient remain on antibiotic and antiviral therapy. Awaiting lumbar puncture due to elevated INR at 1.49 today. No fever or chills. Tolerating some amount of oral feeding. No difficulty with breathing. Family at bedside reported satisfactory verbal communication. Physical Exam Vital Signs: Temp Pulse Resp BP Pulse Ox 97.7 F 81 18 114/70 100 11/10/16 07:34 11/10/16 07:34 11/10/16 07:34 11/10/16 07:34 11/10/16 07:34 Intake & Output 11/09/16 11/10/16 11/11/16 06:59 06:59 06:59 Intake Total 1900 1470 Output Total 675 725 Balance 1225 745 Weight 81.7 kg 86.3 kg General appearance: PRESENT: no acute distress, well-developed, well-nourished Head exam: PRESENT: atraumatic, normocephalic Eye exam: PRESENT: conjunctiva pink, EOMI, PERRLA. ABSENT: scleral icterus Neck exam: PRESENT: full ROM. ABSENT: carotid bruit, JVD, lymphadenopathy, thyromegaly Respiratory exam: PRESENT: clear to auscultation job, decreased breath sounds - at lung bases Cardiovascular exam: PRESENT: RRR. ABSENT: diastolic murmur, rubs, systolic murmur GI/Abdominal exam: PRESENT: normal bowel sounds, soft. ABSENT: distended, guarding, mass, organolmegaly, rebound, tenderness Extremities exam: ABSENT: pedal edema Musculoskeletal exam: PRESENT: deformity - due to joint involvement with arthritis Neurological exam: PRESENT: alert, oriented to person, oriented to place, CN II- XII grossly intact. ABSENT: motor sensory deficit Skin exam: PRESENT: dry, intact, warm. ABSENT: cyanosis, rash Results Laboratory Results: 11/10/16 03:49 11/10/16 03:49 11/10/16 11/10/16 03:49 03:49 WBC 5.2 RBC 4.70 Hgb 13.3 L Hct 41.5 MCV 88 MCH 28.3 MCHC 32.0 RDW 17.1 H Plt Count 101 L Seg Neutrophils % 62.0 Lymphocytes % 26.1 Monocytes % 9.8 Eosinophils % 0.9 Basophils % 1.2 Absolute Neutrophils 3.2 Absolute Lymphocytes 1.3 Absolute Monocytes 0.5 Absolute Eosinophils 0.0 Absolute Basophils 0.1 Sodium 141.5 Potassium 3.9 Chloride 108 H Carbon Dioxide 20 L Anion Gap 14 BUN 9 Creatinine 0.76 Est GFR ( Amer) > 60 Est GFR (Non-Af Amer) > 60 Glucose 97 Calcium 8.8 Impressions: Chest X-Ray 11/07/16 12:35 IMPRESSION: No significant interval change. No acute findings. Other findings as noted above Head CT 11/07/16 12:36 IMPRESSION: CHRONIC CHANGES OF ATROPHY AND MICROVASCULAR ISCHEMIA. NO ACUTE PROCESS. Head MRI 11/08/16 00:00 IMPRESSION: ATROPHY AND CHRONIC MICRO-VASCULAR ISCHEMIC CHANGES. OTHERWISE NORMAL MRI OF THE BRAIN WITHOUT INTRAVENOUS GADOLINIUM CONTRAST. No acute infarct. No hemorrhage. Assessment & Plan - Diagnosis (1) Altered mental status Qualifiers: Altered mental status type: somnolence Qualified Code(s): R40.0 - Somnolence Is this a current diagnosis for this admission?: YesPlan: Improving on current medication management. (2) Encephalopathy Is this a current diagnosis for this admission?: YesPlan: Improving on current medication management. (3) Meningoencephalitis Is this a current diagnosis for this admission?: YesPlan: Improving on current medication management. 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 (5) Chronic atrial fibrillation Plan: See attending physician orders. (6) HLD (hyperlipidemia) Qualifiers: Hyperlipidemia type: pure hypercholesterolemia Qualified Code(s): E78.00 - Pure hypercholesterolemia, unspecified; E78.0 - Pure hypercholesterolemia Is this a current diagnosis for this admission?: YesPlan: See attending physician orders. (7) HTN (hypertension) Qualifiers: Hypertension type: essential hypertension Qualified Code(s): I10 - Essential (primary) hypertension Is this a current diagnosis for this admission?: YesPlan: See attending physician orders. - Time Time Spent with patient: 25-34 minutes Medications reviewed and adjusted accordingly: Yes Anticipated discharge: SNF Within: Other - Inpatient Certification Based on my medical assessment, after consideration of the patient's comorbidities, presenting symptoms, or acuity I expect that the services needed warrant INPATIENT care.: Yes I certify that my determination is in accordance with my understanding of Medicare's requirements for reasonable and necessary INPATIENT services [42 CFR 412.3e].: Yes Medical Necessity: Need For IV Fluids, Need For Continuous Telemetry Monitoring , Need for IV Antibiotics, Risk of Complication if Not Cared For in Hospital Post Hospital Care: D/C or Transfer Summary - Plan Summary Plan Summary: Continue IV Vancomycin, Cefepime, and Acyclovir coverage. Follow up on pending Lumbar puncture when INR is or below 1.4. Encourage oral feeding with aspiration restriction.
[2016-11-10] MEDS: TAMSULOSIN HCL 0.4 MG CAP.SR.24H PO SCH (17:43)
[2016-11-10] MEDS: CHOLECALCIFEROL (D3) 1,000 UNIT TABLET PO SCH (21:24)
[2016-11-11] MEDS: ACYCLOVIR SODIUM IV SCH ×3 (02:29→18:50)
[2016-11-11] MEDS: NORMAL SALINE IV SCH ×3 (02:29→18:50)
[2016-11-11 04:59] LABS: HEMATOCRIT 37.1 % (37.9-51.0); HEMOGLOBIN 12.2 g/dL (13.5-17.0); HGB HCT DIFFERENCE -0.5; MEAN CORPUSCULAR HEMOGLOBIN 28.6 pg (27.0-33.4); MEAN CORPUSCULAR HGB CONC 32.9 g/dL (32.0-36.0); MEAN CORPUSCULAR VOLUME 87 fl (80-97); RED BLOOD COUNT 4.27 10^6/uL (4.35-5.55); RED CELL DISTRIBUTION WIDTH 17.5 % (11.5-14.0); WHITE BLOOD COUNT 4.4 10^3/uL (4.0-10.5)
[2016-11-11] MEDS: LEVOTHYROXINE SODIUM 0.05 MG TABLET PO SCH (05:02)
[2016-11-11 05:17] LABS: ANION GAP 10 (5-19); BLOOD UREA NITROGEN 7 mg/dL (7-20); CALCIUM 8.5 mg/dL (8.4-10.2); CARBON DIOXIDE 22 mmol/L (22-30); CHLORIDE 107 mmol/L (98-107); GLUCOSE 121 mg/dL (75-110); POTASSIUM 3.7 mmol/L (3.6-5.0); SODIUM 139.4 mmol/L (137-145)
[2016-11-11 05:35] LABS: PROTHROMBIN TIME 18.9 SEC (11.4-15.4)
[2016-11-11 05:36] LABS: PARTIAL THROMBOPLASTIN TIME 35.8 SEC (23.5-35.8)
--- NOTE | 2016-11-11 09:19 | PDOC PROGRESS REPORT ---
Subjective Progress Note for:: 11/11/16 Subjective:: Patient is schedule for lumbar puncture later today. No fever or chills. No chest pain or difficulty with breathing. Tolerating some amount of oral feeding. Remain on antibiotic and antiviral therapy. Physical Exam Vital Signs: Temp Pulse Resp BP Pulse Ox 97.3 F 72 18 114/83 100 11/11/16 07:08 11/11/16 07:08 11/11/16 07:08 11/11/16 07:08 11/11/16 07:08 Intake & Output 11/10/16 11/11/16 11/12/16 06:59 06:59 06:59 Intake Total 1470 1820 Output Total 725 615 Balance 745 1205 Weight 86.3 kg 84.6 kg Physical Exam: General appearance: PRESENT: no acute distress, well-developed, well-nourished Head exam: PRESENT: atraumatic, normocephalic Eye exam: PRESENT: conjunctiva pink, EOMI, PERRLA. ABSENT: scleral icterus Neck exam: PRESENT: full ROM. ABSENT: carotid bruit, JVD, lymphadenopathy, thyromegaly Respiratory exam: PRESENT: clear to auscultation job, decreased breath sounds - at lung bases Cardiovascular exam: PRESENT: RRR. ABSENT: diastolic murmur, rubs, systolic murmur GI/Abdominal exam: PRESENT: normal bowel sounds, soft. 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 ABSENT: motor sensory deficit Skin exam: PRESENT: dry, intact, warm. ABSENT: cyanosis, rash Results Laboratory Results: 11/11/16 03:59 11/11/16 03:59 11/11/16 11/11/16 03:59 03:59 WBC 4.4 RBC 4.27 L Hgb 12.2 L Hct 37.1 L MCV 87 MCH 28.6 MCHC 32.9 RDW 17.5 H Plt Count 111 L Sodium 139.4 Potassium 3.7 Chloride 107 Carbon Dioxide 22 Anion Gap 10 BUN 7 Creatinine 0.70 Est GFR ( Amer) > 60 Est GFR (Non-Af Amer) > 60 Glucose 121 H Calcium 8.5 Impressions: Chest X-Ray 11/07/16 12:35 IMPRESSION: No significant interval change. No acute findings. Other findings as noted above Head CT 11/07/16 12:36 IMPRESSION: CHRONIC CHANGES OF ATROPHY AND MICROVASCULAR ISCHEMIA. NO ACUTE PROCESS. Head MRI 11/08/16 00:00 IMPRESSION: ATROPHY AND CHRONIC MICRO-VASCULAR ISCHEMIC CHANGES. OTHERWISE NORMAL MRI OF THE BRAIN WITHOUT INTRAVENOUS GADOLINIUM CONTRAST. No acute infarct. No hemorrhage. Assessment & Plan - Diagnosis (1) Altered mental status Qualifiers: Altered mental status type: somnolence Qualified Code(s): R40.0 - Somnolence Is this a current diagnosis for this admission?: Yes (2) Encephalopathy Is this a current diagnosis for this admission?: Yes (3) Meningoencephalitis Is this a current diagnosis for this admission?: Yes (4) History of stroke with residual deficit Is this a current diagnosis for this admission?: Yes (6) HLD (hyperlipidemia) Qualifiers: Hyperlipidemia type: pure hypercholesterolemia Qualified Code(s): E78.00 - Pure hypercholesterolemia, unspecified; E78.0 - Pure hypercholesterolemia Is this a current diagnosis for this admission?: Yes (7) HTN (hypertension) Qualifiers: Hypertension type: essential hypertension Qualified Code(s): I10 - Essential (primary) hypertension Is this a current diagnosis for this admission?: Yes - Time Time Spent with patient: 25-34 minutes Medications reviewed and adjusted accordingly: Yes Anticipated discharge: SNF Within: Other - Inpatient Certification Based on my medical assessment, after consideration of the patient's comorbidities, presenting symptoms, or acuity I expect that the services needed warrant INPATIENT care.: Yes I certify that my determination is in accordance with my understanding of Medicare's requirements for reasonable and necessary INPATIENT services [42 CFR 412.3e].: Yes Medical Necessity: Need Close Monitoring Due to Risk of Patient Decompensation, Need For IV Fluids, Need For Continuous Telemetry Monitoring, Need for IV Antibiotics, Risk of Complication if Not Cared For in Hospital Post Hospital Care: D/C or Transfer Summary - Plan Summary Plan Summary: See attending physician orders.
--- NOTE | 2016-11-11 10:01 | RADIOLOGY REPORT (SQ) ---
EXAM DESCRIPTION: LUMBAR PUNCTURE; FLUORO/NEEDLE PLACEMENT/SPINE COMPLETED DATE/TIME: 11/11/2016 9:46 am REASON FOR STUDY: unresponsive; UNRESPONSIVE COMPARISON: MRI brain 11/08/2016, CT brain 11/07/2016 FLUOROSCOPY TIME: 33 seconds 5 digital lumbar spine images saved to PACS. TECHNIQUE: Fluoroscopic guided lumbar puncture. LIMITATIONS: None. PROCEDURE: After written consent and assessment were obtained, the patient was brought into the fluo roscopy room and placed prone on the table. The patient's lower back was prepped in a sterile fashio n and an entry site was selected under live fluoroscopic guidance. The entry site was anesthetized wi th 1% lidocaine. A 22 gauge needle was advanced through the skin and into the thecal sac at the right paracentral L2-3 level. At After approximately 10 ml was drained, the needle was removed and a ster ile bandage was placed of the site. Specimens were sent to the lab for testing. A fluoroscopic spot image was saved to PACS confirming level access. FINDINGS: Clear CSF Opening pressure 19 cm of water, closing pressure 15 cm of water IMPRESSION: Lumbar puncture under fluoroscopy. No immediate complication. COMMENT: Patient medication list reviewed: Yes- Quality ID# [id number]:Eligible professional attests to doc umenting in the medical record they obtained, updated, or reviewed the patient's current medications. . Quality ID [id number]: Final reports for procedures using fluoroscopy that document radiation exposure nolberto barbara, or exposure time and number of fluorographic images (if radiation exposure indices are not avail able) TECHNICAL DOCUMENTATION: JOB ID: [id number] [employer]- All Rights Reserved
[2016-11-11] MEDS: FERROUS SULFATE 325 MG TABLET PO SCH ×2 (10:30→18:48)
[2016-11-11] MEDS: MAGNESIUM OXIDE 400 MG TABLET PO SCH (10:37)
[2016-11-11] MEDS: ASCORBIC ACID 500 MG TABLET PO SCH ×2 (10:37→18:48)
[2016-11-11] MEDS: METOPROLOL SUCCINATE 25 MG TAB.SR.24H PO SCH ×2 (10:38→21:16)
[2016-11-11] MEDS: APIXABAN 2.5 MG TABLET PO SCH ×2 (10:38→18:48)
[2016-11-11] MEDS: CEFTRIAXONE 1 GM/D5W RTU 1 GM/50 ML RTUPB IV SCH ×2 (10:41→21:15)
[2016-11-11 10:53] LABS: APPEARANCE ALL TUBES CLEAR; RBC DILUENT USED NONE USED; RBC DILUTION FACTOR 1; RBC SIDE 1 26; RBC SIDE 2 26; TOTAL RBC SQUARES COUNTED 225
[2016-11-11 10:54] LABS: WHITE BLOOD CELL,CSF 24 /uL (0-5)
[2016-11-11] MEDS: VANCOMYCIN HCL 750 MG in DEXTROSE 5%-WATER 250 ML IV SCH ×2 (11:00→21:16)
[2016-11-11 11:15] LABS: GLUCOSE,CSF 72 mg/dL (40-70)
[2016-11-11] MEDS: TAMSULOSIN HCL 0.4 MG CAP.SR.24H PO SCH (18:48)
[2016-11-11] MEDS: NORMAL SALINE 1000 ML 1,000 ML IV PRN (18:50)
[2016-11-11] MEDS ORDERED: FLUCONAZOLE 400 MG/NS RTU 400 MG/200 ML RTUPB IV ONE (19:00)
[2016-11-11] MEDS: CHOLECALCIFEROL (D3) 1,000 UNIT TABLET PO SCH (21:15)
[2016-11-12] MEDS: ACYCLOVIR SODIUM IV SCH ×3 (02:15→17:27)
[2016-11-12] MEDS: NORMAL SALINE IV SCH ×3 (02:15→17:27)
[2016-11-12] MEDS: LEVOTHYROXINE SODIUM 0.05 MG TABLET PO SCH (05:07)
[2016-11-12] MEDS: VANCOMYCIN HCL 750 MG in DEXTROSE 5%-WATER 250 ML IV SCH ×2 (09:49→21:23)
[2016-11-12] MEDS: MAGNESIUM OXIDE 400 MG TABLET PO SCH (09:49)
[2016-11-12] MEDS: FERROUS SULFATE 325 MG TABLET PO SCH ×2 (09:49→17:27)
[2016-11-12] MEDS: METOPROLOL SUCCINATE 25 MG TAB.SR.24H PO SCH ×2 (09:49→21:12)
[2016-11-12] MEDS: APIXABAN 2.5 MG TABLET PO SCH ×2 (09:49→17:27)
[2016-11-12] MEDS: ASCORBIC ACID 500 MG TABLET PO SCH ×2 (09:49→17:27)
[2016-11-12] MEDS: FLUCONAZOLE 200 MG/NS RTU 100 ML IV SCH (10:40)
[2016-11-12] MEDS: CEFTRIAXONE 1 GM/D5W RTU 1 GM/50 ML RTUPB IV SCH ×2 (12:34→21:13)
[2016-11-12] MEDS: TAMSULOSIN HCL 0.4 MG CAP.SR.24H PO SCH (17:27)
[2016-11-12] MEDS: NORMAL SALINE 1000 ML 1,000 ML IV PRN (17:27)
--- NOTE | 2016-11-12 18:27 | PDOC PROGRESS REPORT ---
Subjective Progress Note for:: 11/12/16 Subjective:: Patient has been sleepy most of the day. She was evaluated by physical therapist earlier today with minimal participation. No fever or chills. No chest pain or difficulty with breathing. No nausea, vomiting or expressed abdominal pain. Tolerating some amount of oral feeding. Remain on antifungal, antibiotic and antiviral therapy. Physical Exam Vital Signs: Temp Pulse Resp BP Pulse Ox 97.5 F 82 16 112/77 100 11/12/16 15:44 11/12/16 15:44 11/12/16 15:44 11/12/16 15:44 11/12/16 15:44 Intake & Output 11/11/16 11/12/16 11/13/16 06:59 06:59 06:59 Intake Total 1820 1928 Output Total 615 625 Balance 1205 1303 Weight 84.6 kg 84.3 kg Physical Exam: General appearance: PRESENT: no acute distress, well-developed, well-nourished Head exam: PRESENT: atraumatic, normocephalic Eye exam: PRESENT: conjunctiva pink, EOMI, PERRLA. ABSENT: scleral icterus Neck exam: PRESENT: full ROM. ABSENT: carotid bruit, JVD, lymphadenopathy, thyromegaly Respiratory exam: PRESENT: clear to auscultation job, decreased breath sounds - at lung bases Cardiovascular exam: PRESENT: RRR. ABSENT: diastolic murmur, rubs, systolic murmur GI/Abdominal exam: PRESENT: normal bowel sounds, soft. 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 ABSENT: motor sensory deficit Skin exam: PRESENT: dry, intact, warm. ABSENT: cyanosis, rash Results Laboratory Results: 11/11/16 03:59 11/11/16 03:59 Impressions: Chest X-Ray 11/07/16 12:35 IMPRESSION: No significant interval change. No acute findings. Other findings as noted above Head CT 11/07/16 12:36 IMPRESSION: CHRONIC CHANGES OF ATROPHY AND MICROVASCULAR ISCHEMIA. NO ACUTE PROCESS. Head MRI 11/08/16 00:00 IMPRESSION: ATROPHY AND CHRONIC MICRO-VASCULAR ISCHEMIC CHANGES. OTHERWISE NORMAL MRI OF THE BRAIN WITHOUT INTRAVENOUS GADOLINIUM CONTRAST. No acute infarct. No hemorrhage. Guidance Fluoroscopy 11/11/16 00:00 IMPRESSION: Lumbar puncture under fluoroscopy. No immediate complication. Lumbar Puncture 11/11/16 00:00 IMPRESSION: Lumbar puncture under fluoroscopy. No immediate complication. Assessment & Plan - Diagnosis (1) Altered mental status Qualifiers: Altered mental status type: somnolence Qualified Code(s): R40.0 - Somnolence Is this a current diagnosis for this admission?: YesPlan: Obtain serum ammonia level for further evaluation of his somnolence. Instructed nursing staff to monitor sleep pattern during the night. (2) Encephalopathy Is this a current diagnosis for this admission?: YesPlan: Improving on current medication management. (3) Meningoencephalitis Is this a current diagnosis for this admission?: YesPlan: Improving on current medication management. Awaiting final report of CSF culture. Blood culture has been no growth x 5 days. 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 (5) Chronic atrial fibrillation Is this a current diagnosis for this admission?: YesPlan: See attending physician orders. (6) HLD (hyperlipidemia) Qualifiers: Hyperlipidemia type: pure hypercholesterolemia Qualified Code(s): E78.00 - Pure hypercholesterolemia, unspecified; E78.0 - Pure hypercholesterolemia Is this a current diagnosis for this admission?: YesPlan: See attending physician orders. (7) HTN (hypertension) Qualifiers: Hypertension type: essential hypertension Qualified Code(s): I10 - Essential (primary) hypertension Is this a current diagnosis for this admission?: YesPlan: See attending physician orders. - Time Time Spent with patient: 25-34 minutes Medications reviewed and adjusted accordingly: Yes Anticipated discharge: SNF Within: Other - Inpatient Certification Based on my medical assessment, after consideration of the patient's comorbidities, presenting symptoms, or acuity I expect that the services needed warrant INPATIENT care.: Yes I certify that my determination is in accordance with my understanding of Medicare's requirements for reasonable and necessary INPATIENT services [42 CFR 412.3e].: Yes Medical Necessity: Need Close Monitoring Due to Risk of Patient Decompensation, Need For IV Fluids, Need For Continuous Telemetry Monitoring, Need for IV Antibiotics, Risk of Complication if Not Cared For in Hospital Post Hospital Care: D/C or Transfer Summary - Plan Summary Plan Summary: Follow up on pending CSF culture, if no growth consider discontinuation of IV Vancomycin tomorrow.
[2016-11-12] MEDS: CHOLECALCIFEROL (D3) 1,000 UNIT TABLET PO SCH (21:13)
[2016-11-12] MEDS: MULTIVIT-STRESS FORMULA/ZINC TABLET PO SCH (21:16)
[2016-11-13] MEDS: ACYCLOVIR SODIUM IV SCH ×3 (01:23→17:56)
[2016-11-13] MEDS: NORMAL SALINE IV SCH ×3 (01:23→17:56)
[2016-11-13] MEDS: LEVOTHYROXINE SODIUM 0.05 MG TABLET PO SCH (05:17)
[2016-11-13] MEDS: CEFTRIAXONE 1 GM/D5W RTU 1 GM/50 ML RTUPB IV SCH ×2 (09:56→21:34)
[2016-11-13] MEDS: ASCORBIC ACID 500 MG TABLET PO SCH ×2 (09:57→17:56)
[2016-11-13] MEDS: FERROUS SULFATE 325 MG TABLET PO SCH ×2 (09:57→17:57)
[2016-11-13] MEDS: APIXABAN 2.5 MG TABLET PO SCH ×2 (09:58→17:57)
[2016-11-13] MEDS: MAGNESIUM OXIDE 400 MG TABLET PO SCH (09:58)
[2016-11-13] MEDS: METOPROLOL SUCCINATE 25 MG TAB.SR.24H PO SCH ×2 (09:59→21:32)
[2016-11-13] MEDS: VANCOMYCIN HCL 750 MG in DEXTROSE 5%-WATER 250 ML IV SCH ×2 (10:00→21:38)
[2016-11-13] MEDS: FLUCONAZOLE 200 MG/NS RTU 100 ML IV SCH (10:57)
[2016-11-13 17:37] LABS: ALPHA-2-GLOBULIN 5.2 % (3.0-12.6); CSF PE BETA GLOBULIN 12.8 % (7.3-17.9); TOTAL PROTEIN CSF PE 182.1 mg/dL (0.0-44.0)
--- NOTE | 2016-11-13 17:42 | PDOC PROGRESS REPORT ---
Subjective Progress Note for:: 11/13/16 Subjective:: No fever or chills. No chest pain or difficulty with breathing. No nausea, vomiting or expressed abdominal pain. Tolerating some amount of oral feeding. Remain on antifungal, antibiotic and antiviral therapy. He participated in bedside physical therapy earlier today. Physical Exam Vital Signs: Temp Pulse Resp BP Pulse Ox 98.4 F 74 17 116/80 100 11/13/16 17:10 11/13/16 17:10 11/13/16 17:10 11/13/16 17:10 11/13/16 17:10 Intake & Output 11/12/16 11/13/16 11/14/16 06:59 06:59 06:59 Intake Total 1928 2483 120 Output Total 625 625 300 Balance 1303 1858 -180 Weight 84.3 kg 87.7 kg Physical Exam: General appearance: PRESENT: no acute distress, well-developed, well-nourished Head exam: PRESENT: atraumatic, normocephalic Eye exam: PRESENT: conjunctiva pink, EOMI, PERRLA. ABSENT: scleral icterus Neck exam: PRESENT: full ROM. ABSENT: carotid bruit, JVD, lymphadenopathy, thyromegaly Respiratory exam: PRESENT: clear to auscultation job, decreased breath sounds - at lung bases Cardiovascular exam: PRESENT: RRR. ABSENT: diastolic murmur, rubs, systolic murmur GI/Abdominal exam: PRESENT: normal bowel sounds, soft. 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 ABSENT: motor sensory deficit Skin exam: PRESENT: dry, intact, warm. ABSENT: cyanosis, rash Results Laboratory Results: 11/11/16 03:59 11/11/16 03:59 11/12/16 11/12/16 18:38 18:38 Lactic Acid 1.7 Ammonia 29.5 Impressions: Chest X-Ray 11/07/16 12:35 IMPRESSION: No significant interval change. No acute findings. Other findings as noted above Head CT 11/07/16 12:36 IMPRESSION: CHRONIC CHANGES OF ATROPHY AND MICROVASCULAR ISCHEMIA. NO ACUTE PROCESS. Head MRI 11/08/16 00:00 IMPRESSION: ATROPHY AND CHRONIC MICRO-VASCULAR ISCHEMIC CHANGES. OTHERWISE NORMAL MRI OF THE BRAIN WITHOUT INTRAVENOUS GADOLINIUM CONTRAST. No acute infarct. No hemorrhage. Guidance Fluoroscopy 11/11/16 00:00 IMPRESSION: Lumbar puncture under fluoroscopy. No immediate complication. Lumbar Puncture 11/11/16 00:00 IMPRESSION: Lumbar puncture under fluoroscopy. No immediate complication. Assessment & Plan - Diagnosis (1) Altered mental status Qualifiers: Altered mental status type: somnolence Qualified Code(s): R40.0 - Somnolence Is this a current diagnosis for this admission?: Yes (2) Encephalopathy Is this a current diagnosis for this admission?: Yes (3) Meningoencephalitis Is this a current diagnosis for this admission?: Yes (4) History of stroke with residual deficit Is this a current diagnosis for this admission?: Yes (5) Chronic atrial fibrillation Is this a current diagnosis for this admission?: Yes (6) HLD (hyperlipidemia) Qualifiers: Hyperlipidemia type: pure hypercholesterolemia Qualified Code(s): E78.00 - Pure hypercholesterolemia, unspecified; E78.0 - Pure hypercholesterolemia Is this a current diagnosis for this admission?: Yes (7) HTN (hypertension) Qualifiers: Hypertension type: essential hypertension Qualified Code(s): I10 - Essential (primary) hypertension Is this a current diagnosis for this admission?: Yes - Time Time Spent with patient: 25-34 minutes Medications reviewed and adjusted accordingly: Yes Anticipated discharge: Home with Homehealth - Inpatient Certification Based on my medical assessment, after consideration of the patient's comorbidities, presenting symptoms, or acuity I expect that the services needed warrant INPATIENT care.: Yes I certify that my determination is in accordance with my understanding of Medicare's requirements for reasonable and necessary INPATIENT services [42 CFR 412.3e].: Yes Medical Necessity: Need Close Monitoring Due to Risk of Patient Decompensation, Need For IV Fluids, Need For Continuous Telemetry Monitoring, Need for IV Antibiotics, Risk of Complication if Not Cared For in Hospital Post Hospital Care: D/C Equity Analyst Documentation - Plan Summary Plan Summary: Follow up on CSF culture findings. So far no growth to date. Family are not attuned to SNF placement for rehabilitation due to recent discharge from [facility] and financial limitation.
[2016-11-13] MEDS: NORMAL SALINE 1000 ML 1,000 ML IV PRN (17:55)
[2016-11-13] MEDS: TAMSULOSIN HCL 0.4 MG CAP.SR.24H PO SCH (17:57)
[2016-11-13] MEDS: MULTIVIT-STRESS FORMULA/ZINC TABLET PO SCH (21:32)
[2016-11-13] MEDS: CHOLECALCIFEROL (D3) 1,000 UNIT TABLET PO SCH (21:33)
[2016-11-14] MEDS: ACYCLOVIR SODIUM IV SCH ×3 (01:11→18:00)
[2016-11-14] MEDS: NORMAL SALINE IV SCH ×3 (01:11→18:00)
[2016-11-14] MEDS: LEVOTHYROXINE SODIUM 0.05 MG TABLET PO SCH (05:14)
[2016-11-14] MEDS: MAGNESIUM OXIDE 400 MG TABLET PO SCH (09:26)
[2016-11-14] MEDS: ASCORBIC ACID 500 MG TABLET PO SCH ×2 (09:27→18:02)
[2016-11-14] MEDS: METOPROLOL SUCCINATE 25 MG TAB.SR.24H PO SCH ×2 (09:27→21:16)
[2016-11-14] MEDS: FERROUS SULFATE 325 MG TABLET PO SCH ×2 (09:28→18:02)
[2016-11-14] MEDS: CEFTRIAXONE 1 GM/D5W RTU 1 GM/50 ML RTUPB IV SCH (09:28)
[2016-11-14] MEDS: APIXABAN 2.5 MG TABLET PO SCH ×2 (09:33→18:04)
[2016-11-14] MEDS: VANCOMYCIN HCL 750 MG in DEXTROSE 5%-WATER 250 ML IV SCH ×2 (10:35→21:15)
[2016-11-14 11:14] LABS: CSF PE GAMMA GLOBULIN 19.4 % (3.0-13.0); PROT ELEC MSPIKE 7.2 % (Not Observed)
[2016-11-14] MEDS: FLUCONAZOLE 200 MG/NS RTU 100 ML IV SCH (12:03)
--- NOTE | 2016-11-14 15:32 | PDOC PROGRESS REPORT ---
Subjective Progress Note for:: 11/14/16 Subjective:: No chest pain or difficulty with breathing. No nausea, vomiting or abdominal pain. P.O intake improving. Remain on antifungal, antibiotic and antiviral therapy. No fever or chills. Physical Exam Vital Signs: Temp Pulse Resp BP Pulse Ox 96.6 F L 85 17 124/84 100 11/14/16 11:54 11/14/16 07:56 11/14/16 11:54 11/14/16 11:54 11/14/16 07:56 Intake & Output 11/13/16 11/14/16 11/15/16 06:59 06:59 06:59 Intake Total 2483 2112 242 Output Total 625 800 275 Balance 1858 1312 -33 Weight 87.7 kg 90.8 kg Physical Exam: General appearance: PRESENT: no acute distress, well-developed, well-nourished Head exam: PRESENT: atraumatic, normocephalic Eye exam: PRESENT: conjunctiva pink, EOMI, PERRLA. ABSENT: scleral icterus Neck exam: PRESENT: full ROM. ABSENT: carotid bruit, JVD, lymphadenopathy, thyromegaly Respiratory exam: PRESENT: clear to auscultation job, decreased breath sounds - at lung bases Cardiovascular exam: PRESENT: RRR. ABSENT: diastolic murmur, rubs, systolic murmur GI/Abdominal exam: PRESENT: normal bowel sounds, soft. 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 ABSENT: motor sensory deficit Skin exam: PRESENT: dry, intact, warm. ABSENT: cyanosis, rash Results Laboratory Results: 11/11/16 03:59 11/11/16 03:59 11/11/16 09:30 CSF Total Protein PEP 182.1 H CSF Prealbumin 1.4 L CSF Albumin 56.9 CSF Oskck-0-Cnhnvhim 4.3 CSF Cfxim-4-Uepwsqjs 5.2 CSF Beta Globulin 12.8 CSF Gamma Globulin 19.4 H CSF PEP M-Vargas 7.2 H 11/11/16 09:30 Cerebral Spinal Fluid - Csf Gram Stain - Final 11/11/16 09:30 Cerebral Spinal Fluid - Csf CSF Culture - Final NO GROWTH 3 DAYS Impressions: Chest X-Ray 11/07/16 12:35 IMPRESSION: No significant interval change. No acute findings. Other findings as noted above Head CT 11/07/16 12:36 IMPRESSION: CHRONIC CHANGES OF ATROPHY AND MICROVASCULAR ISCHEMIA. NO ACUTE PROCESS. Head MRI 11/08/16 00:00 IMPRESSION: ATROPHY AND CHRONIC MICRO-VASCULAR ISCHEMIC CHANGES. OTHERWISE NORMAL MRI OF THE BRAIN WITHOUT INTRAVENOUS GADOLINIUM CONTRAST. No acute infarct. No hemorrhage. Guidance Fluoroscopy 11/11/16 00:00 IMPRESSION: Lumbar puncture under fluoroscopy. No immediate complication. Lumbar Puncture 11/11/16 00:00 IMPRESSION: Lumbar puncture under fluoroscopy. No immediate complication. Assessment & Plan - Diagnosis (1) Altered mental status Qualifiers: Altered mental status type: somnolence Qualified Code(s): R40.0 - Somnolence Is this a current diagnosis for this admission?: Yes (2) Encephalopathy Is this a current diagnosis for this admission?: Yes (3) Meningoencephalitis Is this a current diagnosis for this admission?: Yes (4) History of stroke with residual deficit Is this a current diagnosis for this admission?: Yes (5) Chronic atrial fibrillation Is this a current diagnosis for this admission?: Yes (6) HLD (hyperlipidemia) Qualifiers: Hyperlipidemia type: pure hypercholesterolemia Qualified Code(s): E78.00 - Pure hypercholesterolemia, unspecified; E78.0 - Pure hypercholesterolemia Is this a current diagnosis for this admission?: Yes (7) HTN (hypertension) Qualifiers: Hypertension type: essential hypertension Qualified Code(s): I10 - Essential (primary) hypertension Is this a current diagnosis for this admission?: Yes - Time Time Spent with patient: 25-34 minutes Medications reviewed and adjusted accordingly: Yes Anticipated discharge: Home with Homehealth Within: Other - Inpatient Certification Based on my medical assessment, after consideration of the patient's comorbidities, presenting symptoms, or acuity I expect that the services needed warrant INPATIENT care.: Yes I certify that my determination is in accordance with my understanding of Medicare's requirements for reasonable and necessary INPATIENT services [42 CFR 412.3e].: Yes Medical Necessity: Need Close Monitoring Due to Risk of Patient Decompensation, Need For IV Fluids, Need For Continuous Telemetry Monitoring, Need for IV Antibiotics, Risk of Complication if Not Cared For in Hospital Post Hospital Care: D/C Sales Support Manager Documentation - Plan Summary Plan Summary: Continue IV fluid coverage for total 7 days. His blood, urine and CSF culture were all no growth. I will d/c higuera catheter usage. If patient remain afebrile consider discharge home tomorrow.
[2016-11-14] MEDS: MULTIVIT-STRESS FORMULA/ZINC TABLET PO SCH (18:01)
[2016-11-14] MEDS: TAMSULOSIN HCL 0.4 MG CAP.SR.24H PO SCH (18:01)
[2016-11-14] MEDS: CHOLECALCIFEROL (D3) 1,000 UNIT TABLET PO SCH (21:16)
[2016-11-15] MEDS: ACYCLOVIR SODIUM IV SCH ×2 (02:18→09:07)
[2016-11-15] MEDS: NORMAL SALINE IV SCH ×2 (02:18→09:07)
[2016-11-15] MEDS: LEVOTHYROXINE SODIUM 0.05 MG TABLET PO SCH (05:41)
[2016-11-15] MEDS: MAGNESIUM OXIDE 400 MG TABLET PO SCH (09:06)
[2016-11-15] MEDS: FERROUS SULFATE 325 MG TABLET PO SCH ×2 (09:07→18:06)
[2016-11-15] MEDS: FLUCONAZOLE 200 MG/NS RTU 100 ML IV SCH (09:07)
[2016-11-15] MEDS: ASCORBIC ACID 500 MG TABLET PO SCH ×2 (09:07→18:05)
[2016-11-15] MEDS: METOPROLOL SUCCINATE 25 MG TAB.SR.24H PO SCH ×2 (09:08→21:45)
[2016-11-15] MEDS: APIXABAN 2.5 MG TABLET PO SCH ×2 (09:09→18:06)
[2016-11-15] MEDS: MULTIVIT-STRESS FORMULA/ZINC TABLET PO SCH (18:06)
[2016-11-15] MEDS: TAMSULOSIN HCL 0.4 MG CAP.SR.24H PO SCH (18:06)
--- NOTE | 2016-11-15 21:19 | PDOC PROGRESS REPORT ---
Subjective Progress Note for:: 11/15/16 Subjective:: Patient demonstrated urinary retention since last clinical evaluation. There was need for straight catheterization x 3. No chest pain or difficulty with breathing. No nausea, vomiting or abdominal pain. P.O intake improving. No fever or chills. Physical Exam Vital Signs: Temp Pulse Resp BP Pulse Ox 97.4 F 81 24 H 115/80 100 11/14/16 23:46 11/15/16 20:09 11/15/16 20:09 11/15/16 20:09 11/15/16 20:09 Intake & Output 11/14/16 11/15/16 11/16/16 06:59 06:59 06:59 Intake Total 2112 2031 730 Output Total 800 895 200 Balance 1312 1136 530 Weight 90.8 kg 89.7 kg Physical Exam: General appearance: PRESENT: no acute distress, well-developed, well-nourished Head exam: PRESENT: atraumatic, normocephalic Eye exam: PRESENT: conjunctiva pink, EOMI, PERRLA. ABSENT: scleral icterus Neck exam: PRESENT: full ROM. ABSENT: carotid bruit, JVD, lymphadenopathy, thyromegaly Respiratory exam: PRESENT: clear to auscultation job, decreased breath sounds - at lung bases Cardiovascular exam: PRESENT: RRR. ABSENT: diastolic murmur, rubs, systolic murmur GI/Abdominal exam: PRESENT: normal bowel sounds, soft. ABSENT: distended, guarding, mass, organomegaly, rebound, tenderness Extremities exam: ABSENT: pedal edema : PRESENT: Indwelling higuera cath. 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 ABSENT: motor sensory deficit Skin exam: PRESENT: dry, intact, warm. ABSENT: cyanosis, rash Results Laboratory Results: 11/11/16 03:59 11/11/16 03:59 Impressions: Chest X-Ray 11/07/16 12:35 IMPRESSION: No significant interval change. No acute findings. Other findings as noted above Head CT 11/07/16 12:36 IMPRESSION: CHRONIC CHANGES OF ATROPHY AND MICROVASCULAR ISCHEMIA. NO ACUTE PROCESS. Head MRI 11/08/16 00:00 IMPRESSION: ATROPHY AND CHRONIC MICRO-VASCULAR ISCHEMIC CHANGES. OTHERWISE NORMAL MRI OF THE BRAIN WITHOUT INTRAVENOUS GADOLINIUM CONTRAST. No acute infarct. No hemorrhage. Guidance Fluoroscopy 11/11/16 00:00 IMPRESSION: Lumbar puncture under fluoroscopy. No immediate complication. Lumbar Puncture 11/11/16 00:00 IMPRESSION: Lumbar puncture under fluoroscopy. No immediate complication. Assessment & Plan - Diagnosis (1) Altered mental status Qualifiers: Altered mental status type: somnolence Qualified Code(s): R40.0 - Somnolence Is this a current diagnosis for this admission?: Yes (2) Encephalopathy Is this a current diagnosis for this admission?: Yes (3) Meningoencephalitis Is this a current diagnosis for this admission?: Yes (4) History of stroke with residual deficit Is this a current diagnosis for this admission?: Yes (5) Chronic atrial fibrillation Is this a current diagnosis for this admission?: Yes (6) HLD (hyperlipidemia) Qualifiers: Hyperlipidemia type: pure hypercholesterolemia Qualified Code(s): E78.00 - Pure hypercholesterolemia, unspecified; E78.0 - Pure hypercholesterolemia Is this a current diagnosis for this admission?: Yes (7) HTN (hypertension) Qualifiers: Hypertension type: essential hypertension Qualified Code(s): I10 - Essential (primary) hypertension Is this a current diagnosis for this admission?: Yes (8) Urinary retention Is this a current diagnosis for this admission?: YesPlan: See attending physician orders. - Time Time Spent with patient: 35 or more minutes Medications reviewed and adjusted accordingly: Yes Anticipated discharge: Home with Homehealth Within: Other - Inpatient Certification Medical Necessity: Need Close Monitoring Due to Risk of Patient Decompensation, Need For IV Fluids, Need For Continuous Telemetry Monitoring, Risk of Complication if Not Cared For in Hospital Post Hospital Care: D/C Bobbin Disker Documentation - Plan Summary Plan Summary: See attending physician orders.
[2016-11-15] MEDS: CHOLECALCIFEROL (D3) 1,000 UNIT TABLET PO SCH (21:46)
[2016-11-15] MEDS ORDERED: TAMSULOSIN HCL 0.4 MG CAP.SR.24H PO ONE (22:00)
[2016-11-16] MEDS: LEVOTHYROXINE SODIUM 0.05 MG TABLET PO SCH (06:53)
[2016-11-16] MEDS: FLUCONAZOLE 200 MG/NS RTU 100 ML IV SCH (09:53)
[2016-11-16] MEDS: ASCORBIC ACID 500 MG TABLET PO SCH ×2 (10:01→17:41)
[2016-11-16] MEDS: FERROUS SULFATE 325 MG TABLET PO SCH ×2 (10:01→17:41)
[2016-11-16] MEDS: MAGNESIUM OXIDE 400 MG TABLET PO SCH (10:03)
[2016-11-16] MEDS: FINASTERIDE 5 MG TABLET PO SCH (10:04)
[2016-11-16] MEDS: METOPROLOL SUCCINATE 25 MG TAB.SR.24H PO SCH ×2 (10:04→21:35)
[2016-11-16] MEDS: APIXABAN 2.5 MG TABLET PO SCH ×2 (10:07→17:41)
--- NOTE | 2016-11-16 14:36 | PDOC PROGRESS REPORT ---
Subjective Progress Note for:: 11/16/16 Subjective:: No chest pain or difficulty with breathing. No nausea, vomiting or abdominal pain. P.O intake improving. No fever or chills. Higuera cath in situ. No hematuria. Family at bedside. Physical Exam Vital Signs: Temp Pulse Resp BP Pulse Ox 97.4 F 97 18 122/87 H 100 11/14/16 23:46 11/16/16 07:43 11/16/16 07:43 11/16/16 07:43 11/16/16 07:43 Intake & Output 11/15/16 11/16/16 11/17/16 06:59 06:59 06:59 Intake Total 2031 1430 Output Total 895 475 Balance 1136 955 Weight 89.7 kg Physical Exam: General appearance: PRESENT: no acute distress, well-developed, well-nourished Head exam: PRESENT: atraumatic, normocephalic Eye exam: PRESENT: conjunctiva pink, EOMI, PERRLA. ABSENT: scleral icterus Neck exam: PRESENT: full ROM. ABSENT: carotid bruit, JVD, lymphadenopathy, thyromegaly Respiratory exam: PRESENT: clear to auscultation job, decreased breath sounds - at lung bases Cardiovascular exam: PRESENT: RRR. ABSENT: diastolic murmur, rubs, systolic murmur GI/Abdominal exam: PRESENT: normal bowel sounds, soft. ABSENT: distended, guarding, mass, organomegaly, rebound, tenderness Extremities exam: ABSENT: pedal edema : PRESENT: Indwelling higuera cath. 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 ABSENT: motor sensory deficit Skin exam: PRESENT: dry, intact, warm. ABSENT: cyanosis, rash Results Laboratory Results: 11/11/16 03:59 11/11/16 03:59 Impressions: Chest X-Ray 11/07/16 12:35 IMPRESSION: No significant interval change. No acute findings. Other findings as noted above Head CT 11/07/16 12:36 IMPRESSION: CHRONIC CHANGES OF ATROPHY AND MICROVASCULAR ISCHEMIA. NO ACUTE PROCESS. Head MRI 11/08/16 00:00 IMPRESSION: ATROPHY AND CHRONIC MICRO-VASCULAR ISCHEMIC CHANGES. OTHERWISE NORMAL MRI OF THE BRAIN WITHOUT INTRAVENOUS GADOLINIUM CONTRAST. No acute infarct. No hemorrhage. Guidance Fluoroscopy 11/11/16 00:00 IMPRESSION: Lumbar puncture under fluoroscopy. No immediate complication. Lumbar Puncture 11/11/16 00:00 IMPRESSION: Lumbar puncture under fluoroscopy. No immediate complication. Assessment & Plan - Diagnosis (1) Altered mental status Qualifiers: Altered mental status type: somnolence Qualified Code(s): R40.0 - Somnolence Is this a current diagnosis for this admission?: Yes (2) Encephalopathy Is this a current diagnosis for this admission?: Yes (3) Meningoencephalitis Is this a current diagnosis for this admission?: Yes (4) History of stroke with residual deficit Is this a current diagnosis for this admission?: Yes (5) Chronic atrial fibrillation Is this a current diagnosis for this admission?: Yes (6) HLD (hyperlipidemia) Qualifiers: Hyperlipidemia type: pure hypercholesterolemia Qualified Code(s): E78.00 - Pure hypercholesterolemia, unspecified; E78.0 - Pure hypercholesterolemia Is this a current diagnosis for this admission?: Yes (7) HTN (hypertension) Qualifiers: Hypertension type: essential hypertension Qualified Code(s): I10 - Essential (primary) hypertension Is this a current diagnosis for this admission?: Yes (8) Urinary retention Is this a current diagnosis for this admission?: Yes (9) BPH with obstruction/lower urinary tract symptoms Is this a current diagnosis for this admission?: YesPlan: Continue current medication management. I will request urology consultation tomorrow. - Time Time Spent with patient: 25-34 minutes Medications reviewed and adjusted accordingly: Yes Anticipated discharge: Home with Homehealth Within: within 48 hours - Inpatient Certification Medical Necessity: Need Close Monitoring Due to Risk of Patient Decompensation, Need For Continuous Telemetry Monitoring, Need for IV Antibiotics, Risk of Complication if Not Cared For in Hospital Post Hospital Care: D/C Preparation Department Supervisor Documentation - Plan Summary Plan Summary: See attending physician orders.
[2016-11-16] MEDS: TAMSULOSIN HCL 0.4 MG CAP.SR.24H PO SCH (17:40)
[2016-11-16] MEDS: MULTIVIT-STRESS FORMULA/ZINC TABLET PO SCH (20:26)
[2016-11-16] MEDS: CHOLECALCIFEROL (D3) 1,000 UNIT TABLET PO SCH (21:36)
[2016-11-17] MEDS: LEVOTHYROXINE SODIUM 0.05 MG TABLET PO SCH (05:27)
[2016-11-17] MEDS: FERROUS SULFATE 325 MG TABLET PO SCH ×2 (08:51→17:01)
--- NOTE | 2016-11-17 09:09 | PDOC PROGRESS REPORT ---
Subjective Progress Note for:: 11/17/16 Subjective:: No chest pain or difficulty with breathing. P.O intake remain a challenge. No nausea, vomiting or abdominal pain. No fever or chills. Higuera catheter in situ. No hematuria. Family at bedside. Physical Exam Vital Signs: Temp Pulse Resp BP Pulse Ox 97.4 F 85 17 120/88 H 100 11/17/16 07:57 11/17/16 07:57 11/17/16 07:57 11/17/16 07:57 11/17/16 07:57 Intake & Output 11/16/16 11/17/16 11/18/16 06:59 06:59 06:59 Intake Total 1430 1633 Output Total 475 425 Balance 955 1208 Weight 89.2 kg Physical Exam: General appearance: PRESENT: no acute distress, well-developed, well-nourished Head exam: PRESENT: atraumatic, normocephalic Eye exam: PRESENT: conjunctiva pink, EOMI, PERRLA. ABSENT: scleral icterus Neck exam: PRESENT: full ROM. ABSENT: carotid bruit, JVD, lymphadenopathy, thyromegaly Respiratory exam: PRESENT: clear to auscultation job, decreased breath sounds - at lung bases Cardiovascular exam: PRESENT: RRR. ABSENT: diastolic murmur, rubs, systolic murmur GI/Abdominal exam: PRESENT: normal bowel sounds, soft. ABSENT: distended, guarding, mass, organomegaly, rebound, tenderness Extremities exam: ABSENT: pedal edema : PRESENT: Indwelling higuera cath. 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 ABSENT: motor sensory deficit Skin exam: PRESENT: dry, intact, warm. ABSENT: cyanosis, rash Results Laboratory Results: 11/11/16 03:59 11/11/16 03:59 Impressions: Chest X-Ray 11/07/16 12:35 IMPRESSION: No significant interval change. No acute findings. Other findings as noted above Head CT 11/07/16 12:36 IMPRESSION: CHRONIC CHANGES OF ATROPHY AND MICROVASCULAR ISCHEMIA. NO ACUTE PROCESS. Head MRI 11/08/16 00:00 IMPRESSION: ATROPHY AND CHRONIC MICRO-VASCULAR ISCHEMIC CHANGES. OTHERWISE NORMAL MRI OF THE BRAIN WITHOUT INTRAVENOUS GADOLINIUM CONTRAST. No acute infarct. No hemorrhage. Guidance Fluoroscopy 11/11/16 00:00 IMPRESSION: Lumbar puncture under fluoroscopy. No immediate complication. Lumbar Puncture 11/11/16 00:00 IMPRESSION: Lumbar puncture under fluoroscopy. No immediate complication. Assessment & Plan - Diagnosis (1) Altered mental status Qualifiers: Altered mental status type: somnolence Qualified Code(s): R40.0 - Somnolence Is this a current diagnosis for this admission?: Yes (2) Encephalopathy Is this a current diagnosis for this admission?: Yes (3) Meningoencephalitis Is this a current diagnosis for this admission?: Yes (4) History of stroke with residual deficit Is this a current diagnosis for this admission?: Yes (5) Chronic atrial fibrillation Is this a current diagnosis for this admission?: Yes (6) HLD (hyperlipidemia) Qualifiers: Hyperlipidemia type: pure hypercholesterolemia Qualified Code(s): E78.00 - Pure hypercholesterolemia, unspecified; E78.0 - Pure hypercholesterolemia Is this a current diagnosis for this admission?: Yes (7) HTN (hypertension) Qualifiers: Hypertension type: essential hypertension Qualified Code(s): I10 - Essential (primary) hypertension Is this a current diagnosis for this admission?: Yes (8) Urinary retention Is this a current diagnosis for this admission?: YesPlan: See attending physician orders. (9) BPH with obstruction/lower urinary tract symptoms Is this a current diagnosis for this admission?: YesPlan: Continue current medication management. Awaiting urology consultation input. 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
[2016-11-17] MEDS: ASCORBIC ACID 500 MG TABLET PO SCH ×2 (11:29→17:01)
[2016-11-17] MEDS: METOPROLOL SUCCINATE 25 MG TAB.SR.24H PO SCH ×2 (11:29→21:07)
[2016-11-17] MEDS: APIXABAN 2.5 MG TABLET PO SCH ×2 (11:29→17:01)
[2016-11-17] MEDS: FINASTERIDE 5 MG TABLET PO SCH (11:30)
[2016-11-17] MEDS: FLUCONAZOLE 200 MG/NS RTU 100 ML IV SCH (11:30)
[2016-11-17] MEDS: MAGNESIUM OXIDE 400 MG TABLET PO SCH (11:30)
[2016-11-17] MEDS: TAMSULOSIN HCL 0.4 MG CAP.SR.24H PO SCH (17:01)
[2016-11-17] MEDS: MULTIVIT-STRESS FORMULA/ZINC TABLET PO SCH (18:24)
[2016-11-17] MEDS: CHOLECALCIFEROL (D3) 1,000 UNIT TABLET PO SCH (21:07)
[2016-11-18] MEDS: NORMAL SALINE 1000 ML 1,000 ML IV PRN ×2 (01:02→18:17)
[2016-11-18] MEDS: LEVOTHYROXINE SODIUM 0.05 MG TABLET PO SCH (05:24)
[2016-11-18] MEDS: METOPROLOL SUCCINATE 25 MG TAB.SR.24H PO SCH ×2 (09:21→21:38)
[2016-11-18] MEDS: APIXABAN 2.5 MG TABLET PO SCH ×2 (09:22→18:20)
[2016-11-18] MEDS: MAGNESIUM OXIDE 400 MG TABLET PO SCH (09:22)
[2016-11-18] MEDS: ASCORBIC ACID 500 MG TABLET PO SCH ×2 (09:22→18:20)
[2016-11-18] MEDS: FINASTERIDE 5 MG TABLET PO SCH (09:22)
[2016-11-18] MEDS: FERROUS SULFATE 325 MG TABLET PO SCH ×2 (09:23→18:19)
[2016-11-18] MEDS: FLUCONAZOLE 200 MG/NS RTU 100 ML IV SCH (10:35)
[2016-11-18] MEDS: TAMSULOSIN HCL 0.4 MG CAP.SR.24H PO SCH (18:20)
[2016-11-18] MEDS: MULTIVIT-STRESS FORMULA/ZINC TABLET PO SCH (18:21)
--- NOTE | 2016-11-18 21:14 | PDOC PROGRESS REPORT ---
Subjective Progress Note for:: 11/18/16 Subjective:: No chest pain or difficulty with breathing. P.O intake remain a challenge. No nausea, vomiting or abdominal pain. No fever or chills. Cesar catheter discontinued as per Dr Raya instruction with [id number] straight cath if necessary. No hematuria. Family at bedside. Physical Exam Vital Signs: Temp Pulse Resp BP Pulse Ox 97.4 F 76 16 126/96 H 100 11/18/16 15:06 11/18/16 15:06 11/18/16 15:06 11/18/16 15:06 11/18/16 15:06 Intake & Output 11/17/16 11/18/16 11/19/16 06:59 06:59 06:59 Intake Total 1633 9597 1170 Output Total 425 1050 400 Balance 1208 8547 770 Weight 89.2 kg 90.1 kg Physical Exam: General appearance: PRESENT: no acute distress, well-developed, well-nourished Head exam: PRESENT: atraumatic, normocephalic Eye exam: PRESENT: conjunctiva pink, EOMI, PERRLA. ABSENT: scleral icterus Neck exam: PRESENT: full ROM. ABSENT: carotid bruit, JVD, lymphadenopathy, thyromegaly Respiratory exam: PRESENT: clear to auscultation job, decreased breath sounds - at lung bases Cardiovascular exam: PRESENT: RRR. ABSENT: diastolic murmur, rubs, systolic murmur GI/Abdominal exam: PRESENT: normal bowel sounds, soft. 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 ABSENT: motor sensory deficit Skin exam: PRESENT: dry, intact, warm. ABSENT: cyanosis, rash Results Laboratory Results: 11/11/16 03:59 11/11/16 03:59 Impressions: Chest X-Ray 11/07/16 12:35 IMPRESSION: No significant interval change. No acute findings. Other findings as noted above Head CT 11/07/16 12:36 IMPRESSION: CHRONIC CHANGES OF ATROPHY AND MICROVASCULAR ISCHEMIA. NO ACUTE PROCESS. Head MRI 11/08/16 00:00 IMPRESSION: ATROPHY AND CHRONIC MICRO-VASCULAR ISCHEMIC CHANGES. OTHERWISE NORMAL MRI OF THE BRAIN WITHOUT INTRAVENOUS GADOLINIUM CONTRAST. No acute infarct. No hemorrhage. Guidance Fluoroscopy 11/11/16 00:00 IMPRESSION: Lumbar puncture under fluoroscopy. No immediate complication. Lumbar Puncture 11/11/16 00:00 IMPRESSION: Lumbar puncture under fluoroscopy. No immediate complication. Assessment & Plan - Diagnosis (1) Altered mental status Qualifiers: Altered mental status type: somnolence Qualified Code(s): R40.0 - Somnolence Is this a current diagnosis for this admission?: Yes (2) Encephalopathy Is this a current diagnosis for this admission?: Yes (3) Meningoencephalitis Is this a current diagnosis for this admission?: Yes (4) History of stroke with residual deficit Is this a current diagnosis for this admission?: Yes (5) Chronic atrial fibrillation Is this a current diagnosis for this admission?: Yes (6) HLD (hyperlipidemia) Qualifiers: Hyperlipidemia type: pure hypercholesterolemia Qualified Code(s): E78.00 - Pure hypercholesterolemia, unspecified; E78.0 - Pure hypercholesterolemia Is this a current diagnosis for this admission?: Yes (7) HTN (hypertension) Qualifiers: Hypertension type: essential hypertension Qualified Code(s): I10 - Essential (primary) hypertension Is this a current diagnosis for this admission?: Yes (8) Urinary retention Is this a current diagnosis for this admission?: Yes (9) BPH with obstruction/lower urinary tract symptoms Is this a current diagnosis for this admission?: Yes - Time Time Spent with patient: 25-34 minutes Medications reviewed and adjusted accordingly: Yes Anticipated discharge: Home with Homehealth Within: Other - Inpatient Certification Based on my medical assessment, after consideration of the patient's comorbidities, presenting symptoms, or acuity I expect that the services needed warrant INPATIENT care.: Yes I certify that my determination is in accordance with my understanding of Medicare's requirements for reasonable and necessary INPATIENT services [42 CFR 412.3e].: Yes Medical Necessity: Need Close Monitoring Due to Risk of Patient Decompensation, Need For IV Fluids, Need For Continuous Telemetry Monitoring, Need for IV Antibiotics 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
[2016-11-18] MEDS: CHOLECALCIFEROL (D3) 1,000 UNIT TABLET PO SCH (21:38)
[2016-11-18 22:02] LABS: ABSOLUTE BASOPHILS # (AUTO) 0.1 10^3/uL (0.0-0.2); ABSOLUTE EOSINOPHILS # (AUTO) 0.1 10^3/uL (0.0-0.6); ABSOLUTE LYMPHOCYTES (AUTO) 1.1 10^3/uL (0.5-4.7); ABSOLUTE MONOCYTES (AUTO) 0.4 10^3/uL (0.1-1.4); ABSOLUTE NEUT (AUTO) 2.6 10^3/uL (1.7-8.2); BASOPHILS % (AUTO) 1.8 % (0-2); EOSINOPHILS % (AUTO) 1.7 % (0-6); HEMATOCRIT 38.4 % (37.9-51.0); HEMOGLOBIN 12.4 g/dL (13.5-17.0); HGB HCT DIFFERENCE -1.2; LYMPHOCYTES % (AUTO) 26.3 % (13-45); MEAN CORPUSCULAR HEMOGLOBIN 28.7 pg (27.0-33.4); MEAN CORPUSCULAR HGB CONC 32.4 g/dL (32.0-36.0); MEAN CORPUSCULAR VOLUME 89 fl (80-97); MONOCYTES % (AUTO) 9.6 % (3-13); RED BLOOD COUNT 4.33 10^6/uL (4.35-5.55); RED CELL DISTRIBUTION WIDTH 18.2 % (11.5-14.0); SEGMENTED NEUTROPHILS % (AUTO) 60.6 % (42-78); WHITE BLOOD COUNT 4.2 10^3/uL (4.0-10.5)
[2016-11-18 22:04] LABS: ALANINE AMINOTRANSFERASE 37 U/L (21-72); ALBUMIN 2.9 g/dL (3.5-5.0); ALKALINE PHOSPHATASE 151 U/L (38-126); ANION GAP 9 (5-19); ASPARTATE AMINO TRANSFERASE 39 U/L (17-59); BILIRUBIN,DIRECT 0.7 mg/dL (0.0-0.4); BLOOD UREA NITROGEN 10 mg/dL (7-20); CALCIUM 8.8 mg/dL (8.4-10.2); CARBON DIOXIDE 23 mmol/L (22-30); CHLORIDE 108 mmol/L (98-107); CREATININE RESULT 0.76 mg/dL (0.52-1.25); GLUCOSE 111 mg/dL (75-110); SODIUM 139.7 mmol/L (137-145); TOTAL PROTEIN 7.2 g/dL (6.3-8.2)
[2016-11-19] MEDS: LEVOTHYROXINE SODIUM 0.05 MG TABLET PO SCH (05:16)
--- NOTE | 2016-11-19 08:18 | CONSULTATION REPORT E ---
Consultation Report NAME: WALKER ROCHE : 1930 AGE: 86Y DATE: 11/19/2016 303 A TO: GRETEL MANE M.D. FROM: SHYANNE ROSAS M.D. Requesting Physician IMPRESSION: 1. BPH with obstruction. 2. Urinary retention that has since resolved. 3. History of prior CVA with residual deficit. 4. Meningitis that has been subsequently treated on this admission. RECOMMENDATIONS: 1. Continue his tamsulosin 0.4 mg 2 capsules daily. 2. His finasteride 5 mg daily. 3. Follow up with his urologist at [facility] if he develops difficulty with voiding. CONSULTATION: The patient is a pleasant 86-year-old gentleman who was seen through the courtesy of Dr. Rosas for evaluation of urinary retention. The patient was unable to give the history. I obtained the history from his daughter and who were in the room with him. Briefly, he has been under the care of a urologist in [place]. He was taking tamsulosin 0.4 mg on admission to the hospital. He had sustained a recent hip fracture and had been in rehab. He had a change in mental status and was readmitted to the hospital and treated for presumptive meningitis. He had a Cesar catheter initially and was dehydrated. With rehydration, his mental status improved somewhat. He was given a voiding trial on 11/16/2016, but was unable to void, so he was treated with straight cath t.i.d. for 24 hours and then had his Cesar reinserted. His tamsulosin had been discontinued initially, but was restarted and he was also prescribed finasteride. He was given another voiding trial last night and has voided twice since then. I performed a bladder scan this morning for a random residual, which showed 218 mL. He voids into a brief, so it is not known exactly when his last void was. He is not distended or uncomfortable. His past medical history, social history, family history, and review of systems is detailed in his H and P dated 11/07/2016, which I reviewed. I have also reviewed his progress notes since admission and will not recount the data therein in this dictation. PHYSICAL EXAMINATION: GENERAL: The patient is an 86-year-old gentleman who has a pleasant demeanor, but is not able to give an adequate history. He is arousable, though. VITAL SIGNS: As listed in the nurses notes. HEENT/NECK: No facial drooping is noted. His eyes show no evidence of scleral icterus. No facial lesions are noted. His trachea is midline. LUNGS: No evidence of labored breathing. ABDOMEN: Soft and there is no evidence of bladder distention. GENITOURINARY: He is uncircumcised. His penis and glans penis appear normal. His scrotum is normal. His testicles are atrophic. His prostate is approximately 30 grams in size without nodularity or firmness or asymmetry. Prostate is nontender. RECTAL: Anal sphincter tone is lax. There is a bolus of stool in his rectal ampulla. No hemorrhoids or anal lesions are noted. DICTATING PHYSICIAN: GRETEL MANE M.D. [id number] PHY#: [id number] ID: [id number] JOB#: [id number] ACCT: [id number] cc:José Manuel DIEGO M.D. >
[2016-11-19] MEDS: FERROUS SULFATE 325 MG TABLET PO SCH ×2 (08:27→17:28)
[2016-11-19] MEDS: NORMAL SALINE 1000 ML 1,000 ML IV PRN (08:28)
[2016-11-19] MEDS: ASCORBIC ACID 500 MG TABLET PO SCH ×2 (09:13→17:28)
[2016-11-19] MEDS: MAGNESIUM OXIDE 400 MG TABLET PO SCH (09:13)
[2016-11-19] MEDS: FINASTERIDE 5 MG TABLET PO SCH (09:14)
[2016-11-19] MEDS: METOPROLOL SUCCINATE 25 MG TAB.SR.24H PO SCH (09:14)
[2016-11-19] MEDS: APIXABAN 2.5 MG TABLET PO SCH ×2 (09:14→17:28)
--- NOTE | 2016-11-19 12:50 | PDOC DISCHARGE SUMMARY ---
General - Admit/Disc Date/PCP Admission Date/Primary Care Provider: 11/07/16 23:18 SHYANNE ROSAS Discharge Date: 11/19/16 - Discharge Diagnosis (1) Altered mental status Is this a current diagnosis for this admission?: Yes (2) Encephalopathy Is this a current diagnosis for this admission?: Yes (3) Meningoencephalitis Is this a current diagnosis for this admission?: Yes (4) History of stroke with residual deficit Is this a current diagnosis for this admission?: Yes (5) Chronic atrial fibrillation Is this a current diagnosis for this admission?: Yes (6) HLD (hyperlipidemia) Is this a current diagnosis for this admission?: Yes (7) HTN (hypertension) Is this a current diagnosis for this admission?: Yes (8) Urinary retention Is this a current diagnosis for this admission?: Yes (9) BPH with obstruction/lower urinary tract symptoms Is this a current diagnosis for this admission?: Yes - Additional Information Resuscitation Status: Full Code Home Medications: Apixaban [Eliquis 2.5 mg Tablet] 2.5 mg PO Q12 11/07/16 Ascorbic Acid [Vitamin C] 500 mg PO BID 11/07/16 Cholecalciferol (Vitamin D3) [Vitamin D3] 5,000 unit PO QHS 11/07/16 Ferrous Sulfate [Feosol 325 mg Tablet] 325 mg PO BID 11/07/16 Levothyroxine Sodium [Synthroid 0.05 mg Tablet] 0.05 mg PO QPM 11/07/16 Magnesium Oxide [Mag-Ox 400 mg Tablet] 400 mg PO DAILY 11/07/16 Metoprolol Succinate [Toprol Xl 25 mg Tab.sr] 25 mg PO Q12 11/07/16 Tamsulosin HCl [Flomax 0.4 mg Cap.sr] 0.4 mg PO PCSUPPER 11/07/16 History of Present Illness Patient complains of: Altered mental status History of Present Illness: WALKER ROCHE is a 86 year old male, he was brought to the emergency room by family for evaluation of altered mental status. He recently fell and sustained fracture of the left hip , he underwent left hip arthroplasty and the he just recently finished physical therapy at the senior care. Family stated that in the last few days he had diarrhea, anorexia he was getting weaker, he was also recently seen by Dr. Rosas in the office on of this week when he was seen he was able to stand but he could walk only with assistance. In the emergency room he was evaluated he was found to be hypothermic there was no immediate source of infection. When I saw the patient and evaluated him ,the neck is stiff. Family stated that his neck is always stiff. 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 No history could be obtained for this patient because he does not respond to verbal stimulus nor to noxious stimulus. The CAT scan of the head that was done in the emergency room was negative Hospital Course Hospital Course: Patient was broadly covered with IV Acyclovir, Vancomycin and Ceftriaxone with consideration of viral or bacterial meningitis as cause of his altered mental status. His CSF, Urine and blood cultures were no growth. Due to continue episodes of fever despite hois broad antibiotic and antiviral coverage patient was started on antifungal therapy with IV Diflucan. His mentation did eventually improved without any identified infectious etiology. Patient demonstrated urinary retention with voiding difficulty upon removal of his Cesar catheter necessitating increase in his Flomax dosage and initiation of Finasteride as part of his BPH with LUTS management. He treated with intermittent starlight catheterization. He was seen in consultation by Dr Derrick Raya, urologist, who agreed with his current management and recommend follow up in office upon discharge. Physical Exam Vital Signs: Temp Pulse Resp BP Pulse Ox 97.3 F 84 20 118/90 H 100 11/19/16 11:23 11/19/16 11:23 11/19/16 11:23 11/19/16 11:23 11/19/16 11:23 Intake & Output 11/18/16 11/19/16 11/20/16 06:59 06:59 06:59 Intake Total 9597 2510 100 Output Total 1050 450 Balance 8547 2060 100 Weight 90.1 kg 92 kg Physical Exam: General appearance: PRESENT: no acute distress, well-developed, well-nourished Head exam: PRESENT: atraumatic, normocephalic Eye exam: PRESENT: conjunctiva pink, EOMI, PERRLA. ABSENT: scleral icterus Neck exam: PRESENT: full ROM. ABSENT: carotid bruit, JVD, lymphadenopathy, thyromegaly Respiratory exam: PRESENT: clear to auscultation job, decreased breath sounds - at lung bases Cardiovascular exam: PRESENT: RRR. ABSENT: diastolic murmur, rubs, systolic murmur GI/Abdominal exam: PRESENT: normal bowel sounds, soft. ABSENT: distended, guarding, mass, organomegaly, rebound, tenderness Extremities exam: ABSENT: pedal edema Musculoskeletal exam: PRESENT: deformity - due to joint involvement with arthritis : As per documentation of Dr Raya, urologist, on consultation note completed this morning. Neurological exam: PRESENT: alert, oriented to person, oriented to place, CN II- XII grossly intact. ABSENT: motor sensory deficit Skin exam: PRESENT: dry, intact, warm. ABSENT: cyanosis, rash Results Laboratory Results: 11/18/16 21:45 11/18/16 21:45 11/18/16 11/18/16 21:45 21:45 WBC 4.2 RBC 4.33 L Hgb 12.4 L Hct 38.4 MCV 89 MCH 28.7 MCHC 32.4 RDW 18.2 H Plt Count 233 Seg Neutrophils % 60.6 Lymphocytes % 26.3 Monocytes % 9.6 Eosinophils % 1.7 Basophils % 1.8 Absolute Neutrophils 2.6 Absolute Lymphocytes 1.1 Absolute Monocytes 0.4 Absolute Eosinophils 0.1 Absolute Basophils 0.1 Sodium 139.7 Potassium 4.0 Chloride 108 H Carbon Dioxide 23 Anion Gap 9 BUN 10 Creatinine 0.76 Est GFR ( Amer) > 60 Est GFR (Non-Af Amer) > 60 Glucose 111 H Calcium 8.8 Total Bilirubin 1.0 AST 39 ALT 37 Alkaline Phosphatase 151 H Total Protein 7.2 Albumin 2.9 L Impressions: Chest X-Ray 11/07/16 12:35 IMPRESSION: No significant interval change. No acute findings. Other findings as noted above Head CT 11/07/16 12:36 IMPRESSION: CHRONIC CHANGES OF ATROPHY AND MICROVASCULAR ISCHEMIA. NO ACUTE PROCESS. Head MRI 11/08/16 00:00 IMPRESSION: ATROPHY AND CHRONIC MICRO-VASCULAR ISCHEMIC CHANGES. OTHERWISE NORMAL MRI OF THE BRAIN WITHOUT INTRAVENOUS GADOLINIUM CONTRAST. No acute infarct. No hemorrhage. Guidance Fluoroscopy 11/11/16 00:00 IMPRESSION: Lumbar puncture under fluoroscopy. No immediate complication. Lumbar Puncture 11/11/16 00:00 IMPRESSION: Lumbar puncture under fluoroscopy. No immediate complication. Qualifiers PATEINT BEING DISCHARGED WITH ANY OF THE FOLLOWING DIAGNOSIS?: No Plan Discharge Plan: D/C home today with follow up appointment in office with me as well as with Dr Raya as instructed upon discharge. He will be dischgarged home with DETENTION ATTENDANT services to include visiting nurse, personal injury litigation paralegal, and physical therapy. Time Spent: Greater than 30 Minutes
[2016-11-19 13:29] VITALS: BP 116/80
[2016-11-19] MEDS: TAMSULOSIN HCL 0.4 MG CAP.SR.24H PO SCH (17:28)
[2016-11-19] MEDS: MULTIVIT-STRESS FORMULA/ZINC TABLET PO SCH (18:49)
== END 2016-11-19 19:42 | disposition home health service (06) | DRG 99 ==
LOC: ER 12:08 → EH 17:14 → UNDOADMIN 17:14 → EH 20:22 → 3N 20:22 → EH 23:18 → 3N 23:18
PROVIDERS: ADMIT Internal Medicine Geriatric Medicine; ATTEND Internal Medicine Geriatric Medicine
PROC: 009U3ZX Drainage of Spinal Canal, Percutaneous Approach, Diagnostic (ICD-10-PCS; principal; 2016-11-11)
PROC: B01B1ZZ Fluoroscopy of Spinal Cord using Low Osmolar Contrast (ICD-10-PCS; 2016-11-11)
DX: G04.90 Encephalitis and encephalomyelitis, unspecified (principal); I48.2 Chronic atrial fibrillation; E78.5 Hyperlipidemia, unspecified; I10 Essential (primary) hypertension; N40.1 Benign prostatic hyperplasia with lower urinary tract symptoms; R33.9 Retention of urine, unspecified; M19.90 Unspecified osteoarthritis, unspecified site; Z79.899 Other long term (current) drug therapy; Z96.642 Presence of left artificial hip joint; Z87.891 Personal history of nicotine dependence
CPT/HCPCS: 36415; 51702; 62270; 70450; 70551; 71010; 77003; 80048; 80053; 80202; 81001; 82140; 82272; 82565; 82803; 82945; 82962; 83605; 84157; 84166; 84439; 84443; 85025; 85027; 85610; 85730; 87040; 87070; 87086; 87205; 87210; 89050; 93005; 93010; 99291; G8978-GP; G8979-GP; J0133; J0696; J0743; J1450; J3370; J3490; J7030; J7060